=== PATIENT | male | born 1965 | race Hispanic/Latino ===

== ENCOUNTER 2017-02-21 10:31 | Inpatient (IN) | payer OTHER ==
[2017-02-21] MEDS ORDERED: NACL 0.9% 500 ML 500 ML IV ONE ×2 (10:52→11:58)
[2017-02-21] MEDS ORDERED: NACL 0.9% 1000 ML 1,000 ML IV ONE ×3 (10:53→13:57)
[2017-02-21 11:36] LABS: Urine Drugs of Abuse Note Disclamer
[2017-02-21 11:37] LABS: Alanine Aminotransferase 44 units/L (7-56); Albumin/Globulin Ratio 0.4 %; Alkaline Phosphatase 88 units/L (35-129); Anion Gap 22 mmol/L; BUN/Creatinine Ratio 13; Blood Urea Nitrogen 12 mg/dL (9-20); Calcium 7.9 mg/dL (8.4-10.2); Carbon Dioxide 21 mmol/L (22-30); Glucose 198 mg/dL (75-100); Potassium 3.8 mmol/L (3.6-5.0); Sodium 134 mmol/L (137-145); Total Protein 7.1 g/dL (6.3-8.2)
[2017-02-21] MEDS ORDERED: ROCEPHIN/NS 1 GM/50 ML 1 GM/50 ML BAG IV ONE (11:38)
[2017-02-21] MEDS ORDERED: LEVAQUIN 750MG/150ML 750 MG/150 ML BAG IV ONE (11:38)
[2017-02-21 11:45] LABS: Hematocrit 34.3 % (35.5-45.6); Hemoglobin 11.5 gm/dl (11.8-15.2); Mean Corpuscular HGB Conc 34 % (32-34); Mean Corpuscular Hemoglobin 28 pg (28-32); Mean Corpuscular Volume 83 fl (84-94); Platelet Count 346 K/mm3 (140-440); Red Blood Count 4.14 M/mm3 (3.65-5.03); White Blood Count 27.6 K/mm3 (4.5-11.0)
[2017-02-21] MEDS ORDERED: TYLENOL ONE (11:48)
[2017-02-21 11:51] LABS: Bilirubin,Urine NEG (Negative); Blood,Urine NEG (Negative); Ketones,Urine NEG (Negative); Leukocyte Esterase,Urine NEG (Negative); Mucus,Urine 1+ /HPF; Nitrite,Urine NEG (Negative)
[2017-02-21 11:52] LABS: INR 1.31 (0.87-1.13)
[2017-02-21] MEDS ORDERED: TYLENOL PO ONE (11:58)
[2017-02-21] MEDS ORDERED: VANCOMYCIN 2,000 MG in NACL 0.9% 500 ML 500 ML IV ONE (12:00)
[2017-02-21] MEDS ORDERED: VANCOMYCIN PHARMACY TO DOSE IV SCH (12:00)
[2017-02-21 12:43] LABS: Basophils % (Manual) 0 % (0.0-1.8); Blastocytes % (Manual) 0 %; Eosinophils % (Manual) 0 % (0.0-4.3); RBC Morphology Normal
[2017-02-21 12:44] LABS: Diff Status Complete
--- NOTE | 2017-02-21 13:06 | XRay Report ---
Single view chest: History: Possible sepsis. Findings: Large left pleural effusion the suspected consolidation/atelectasis adjacent lung. Left heart border obscured by effusion. Right heart border appears normal. No consolidation at right lung. Impression: Findings as detailed above. For optimal evaluation CT scan may be utilized
--- NOTE | 2017-02-21 13:11 | Emergency Department Report ---
ED General Adult HPI - General Chief complaint: Syncope Stated complaint: GUERO Time Seen by Provider: 02/21/17 11:23 Source: patient Mode of arrival: Ambulatory Limitations: No Limitations - History of Present Illness Initial comments: This is a patient who hasapparently significantly ill for 2 weeks. Despite that he did not see Medical care. He states he has a history of achalasia and has not properly followed up on that as well. He has been coughing with fever and chills for 2 weeks. His sputum is productive of green material. He states he is short of breath. Last night he passed out twice once striking his head. He states he perhaps was unconscious for 5 minutes. The patient presented to the emergency department with a blood pressure of 65 systolic. He was expeditiously placed in a room and given a bolus of IV fluid which was effective in restoring his normal blood pressure. Apparently the patient did go to a family physician who prescribed an antifungal medication. Patient makes no mention of HIV or yeast infection however. He states he thought this was an antibiotic. -: week(s) Location: chest Radiation: non-radiation (on Cough Only) Severity scale (0 -10): 6 Quality: aching Consistency: intermittent Improves with: none Worsens with: none Associated Symptoms: cough, fever/chills Treatments Prior to Arrival: none - Related Data Home Medications Medication Instructions Recorded Confirmed Last Taken No Known Home Medications [No 02/21/17 02/21/17 Unknown Reported Home Medications] Allergies Allergy/AdvReac Type Severity Reaction Status Date / Time No Known Allergies Allergy Verified 02/21/17 10:38 ED Review of Systems ROS: Stated complaint: GUERO Other details as noted in HPI Constitutional: denies: chills, fever Eyes: denies: eye pain, eye discharge, vision change ENT: denies: ear pain, throat pain Respiratory: see HPI, cough, shortness of breath. denies: wheezing Cardiovascular: denies: chest pain, palpitations Endocrine: no symptoms reported Gastrointestinal: as per HPI, vomiting (states from its after eating. States cannot tolerate solid food but can swallow liquids). denies: abdominal pain, nausea, diarrhea Genitourinary: denies: urgency, dysuria Musculoskeletal: denies: back pain, joint swelling, arthralgia Skin: denies: rash, lesions Neurological: denies: headache, weakness, paresthesias Psychiatric: denies: anxiety, depression Hematological/Lymphatic: denies: easy bleeding, easy bruising ED Past Medical Hx - Past Medical History Previous Medical History?: No Additional medical history: Accolasia - Surgical History Past Surgical History?: Yes Additional Surgical History: L elbow surgery - Social History Smoking Status: Former Smoker Substance Use Type: None - Medications Home Medications: Home Medications Medication Instructions Recorded Confirmed Last Taken Type No Known Home Medications [No 02/21/17 02/21/17 Unknown History Reported Home Medications] ED Physical Exam - General Limitations: No Limitations General appearance: alert, in no apparent distress, other (ill appearing) - Head Head exam: Present: atraumatic, normocephalic - Eye Eye exam: Present: normal appearance. Absent: scleral icterus - ENT ENT exam: Present: mucous membranes dry, other (I did not note anything consistent with thrush on oropharynx exam) - Neck Neck exam: Present: normal inspection - Respiratory Respiratory exam: Present: rhonchi (on left), other (obviously tachypneic). Absent: normal lung sounds bilaterally, respiratory distress - Cardiovascular Cardiovascular Exam: Present: regular rate, normal rhythm. Absent: systolic murmur, diastolic murmur, rubs, gallop - GI/Abdominal GI/Abdominal exam: Present: soft, normal bowel sounds. Absent: distended, tenderness, guarding, rebound, rigid - Rectal Rectal exam: Present: deferred - Extremities Exam Extremities exam: Present: normal inspection - Back Exam Back exam: Present: normal inspection - Neurological Exam Neurological exam: Present: alert, oriented X3, CN II-XII intact. Absent: motor sensory deficit - Psychiatric Psychiatric exam: Present: normal affect, normal mood - Skin Skin exam: Present: warm, dry, intact, normal color. Absent: rash ED Course Vital Signs 02/21/17 02/21/17 02/21/17 10:35 10:39 10:51 Temperature 98.1 F Pulse Rate 96 H 117 H Respiratory 18 26 H 23 Rate Blood Pressure 65/49 65/49 Blood Pressure [Right] O2 Sat by Pulse 94 Oximetry 02/21/17 02/21/17 02/21/17 10:59 11:00 11:01 Temperature Pulse Rate 113 H 116 H Respiratory 26 H 47 H 14 Rate Blood Pressure 110/73 Blood Pressure 110/69 [Right] O2 Sat by Pulse Oximetry 02/21/17 02/21/17 02/21/17 11:15 11:30 11:45 Temperature Pulse Rate 113 H 113 H 111 H Respiratory 33 H 24 30 H Rate Blood Pressure 104/67 101/56 Blood Pressure [Right] O2 Sat by Pulse 95 95 95 Oximetry 02/21/17 02/21/17 02/21/17 11:55 12:00 12:15 Temperature 103 F H Pulse Rate 107 H 107 H Respiratory 23 30 H Rate Blood Pressure 110/63 95/59 Blood Pressure [Right] O2 Sat by Pulse 95 94 Oximetry - Reevaluation(s) Reevaluation #1: The patient responded well to IV fluids. He clearly has a severe pneumonia with all lobes on the left affected. It is consolidating. He was treated with triple antibiotic. He will be admitted by Dr. Alaniz to the telemetry unit hospitalist service 02/21/17 13:12 ED Medical Decision Making - Lab Data Result diagrams: 02/21/17 11:01 02/21/17 11:01 Laboratory Results - last 24 hr 02/21/17 02/21/17 02/21/17 11:01 11:01 11:01 WBC 27.6 H RBC 4.14 Hgb 11.5 L Hct 34.3 L MCV 83 L MCH 28 MCHC 34 RDW 15.0 Plt Count 346 Add Manual Diff Complete Total Counted 200 Seg Neuts % (Manual) 94.5 H Band Neutrophils % 2.5 Lymphocytes % (Manual) 2.0 L Reactive Lymphs % (Man) 0 Monocytes % (Manual) 1.0 Eosinophils % (Manual) 0 Basophils % (Manual) 0 Metamyelocytes % 0 Myelocytes % 0 Promyelocytes % 0 Blast Cells % 0 Nucleated RBC % Not Reportable Seg Neutrophils # Man 26.1 H Band Neutrophils # 0.7 Lymphocytes # (Manual) 0.6 L Abs React Lymphs (Man) 0.0 Monocytes # (Manual) 0.3 Eosinophils # (Manual) 0.0 Basophils # (Manual) 0.0 Metamyelocytes # 0.0 Myelocytes # 0.0 Promyelocytes # 0.0 Blast Cells # 0.0 WBC Morphology Not Reportable Hypersegmented Neuts Not Reportable Hyposegmented Neuts Not Reportable Hypogranular Neuts Not Reportable Smudge Cells Not Reportable Toxic Granulation Not Reportable Toxic Vacuolation Not Reportable Dohle Bodies Not Reportable Pelger-Huet Anomaly Not Reportable Skip Rods Not Reportable Platelet Estimate Appears normal Clumped Platelets Not Reportable Plt Clumps, EDTA Not Reportable Large Platelets Not Reportable Giant Platelets Not Reportable Platelet Satelliting Not Reportable Plt Morphology Comment Not Reportable RBC Morphology Normal Dimorphic RBCs Not Reportable Polychromasia Not Reportable Hypochromasia Not Reportable Poikilocytosis Not Reportable Anisocytosis Not Reportable Microcytosis Not Reportable Macrocytosis Not Reportable Spherocytes Not Reportable Pappenheimer Bodies Not Reportable Sickle Cells Not Reportable Target Cells Not Reportable Tear Drop Cells Not Reportable Ovalocytes Not Reportable Helmet Cells Not Reportable Raymundo-Toad Hop Bodies Not Reportable Effie Rings Not Reportable Ocilla Cells Not Reportable Bite Cells Not Reportable Crenated Cell Not Reportable Elliptocytes Not Reportable Acanthocytes (Spur) Not Reportable Rouleaux Not Reportable Hemoglobin C Crystals Not Reportable Schistocytes Not Reportable Malaria parasites Not Reportable Armando Bodies Not Reportable Hem Pathologist Commnt No PT 16.9 H INR 1.31 H VBG pH Sodium 134 L Potassium 3.8 Chloride 95.0 L Carbon Dioxide 21 L Anion Gap 22 BUN 12 Creatinine 0.9 Estimated GFR > 60 BUN/Creatinine Ratio 13 Glucose 198 H Lactic Acid Calcium 7.9 L Total Bilirubin 1.30 H AST 26 ALT 44 Alkaline Phosphatase 88 Total Protein 7.1 Albumin 2.0 L Albumin/Globulin Ratio 0.4 Urine Color Urine Turbidity Urine pH Ur Specific Glover Urine Protein Urine Glucose (UA) Urine Ketones Urine Blood Urine Nitrite Urine Bilirubin Urine Urobilinogen Ur Leukocyte Esterase Urine WBC (Auto) Urine RBC (Auto) U Epithel Cells (Auto) Urine Mucus Urine Opiates Screen Urine Methadone Screen Ur Barbiturates Screen Ur Phencyclidine Scrn Ur Amphetamines Screen U Benzodiazepines Scrn Urine Cocaine Screen U Marijuana (THC) Screen Blood Type Antibody Screen ROMINA Antibody Screen 02/21/17 02/21/17 02/21/17 11:01 11:01 11:29 WBC RBC Hgb Hct MCV MCH MCHC RDW Plt Count Add Manual Diff Total Counted Seg Neuts % (Manual) Band Neutrophils % Lymphocytes % (Manual) Reactive Lymphs % (Man) Monocytes % (Manual) Eosinophils % (Manual) Basophils % (Manual) Metamyelocytes % Myelocytes % Promyelocytes % Blast Cells % Nucleated RBC % Seg Neutrophils # Man Band Neutrophils # Lymphocytes # (Manual) Abs React Lymphs (Man) Monocytes # (Manual) Eosinophils # (Manual) Basophils # (Manual) Metamyelocytes # Myelocytes # Promyelocytes # Blast Cells # WBC Morphology Hypersegmented Neuts Hyposegmented Neuts Hypogranular Neuts Smudge Cells Toxic Granulation Toxic Vacuolation Dohle Bodies Pelger-Huet Anomaly Skip Rods Platelet Estimate Clumped Platelets Plt Clumps, EDTA Large Platelets Giant Platelets Platelet Satelliting Plt Morphology Comment RBC Morphology Dimorphic RBCs Polychromasia Hypochromasia Poikilocytosis Anisocytosis Microcytosis Macrocytosis Spherocytes Pappenheimer Bodies Sickle Cells Target Cells Tear Drop Cells Ovalocytes Helmet Cells Raymundo-Toad Hop Bodies Effie Rings Jennifer Cells Bite Cells Crenated Cell Elliptocytes Acanthocytes (Spur) Rouleaux Hemoglobin C Crystals Schistocytes Malaria parasites Armando Bodies Hem Pathologist Commnt PT INR VBG pH 7.399 Sodium Potassium Chloride Carbon Dioxide Anion Gap BUN Creatinine Estimated GFR BUN/Creatinine Ratio Glucose Lactic Acid 3.20 H* Calcium Total Bilirubin AST ALT Alkaline Phosphatase Total Protein Albumin Albumin/Globulin Ratio Urine Color Karla Urine Turbidity Clear Urine pH 5.0 Ur Specific Glover 1.023 Urine Protein 30 mg/dl Urine Glucose (UA) Neg Urine Ketones Neg Urine Blood Neg Urine Nitrite Neg Urine Bilirubin Neg Urine Urobilinogen 4.0 Ur Leukocyte Esterase Neg Urine WBC (Auto) 4.0 Urine RBC (Auto) 4.0 U Epithel Cells (Auto) < 1.0 Urine Mucus 1+ Urine Opiates Screen Urine Methadone Screen Ur Barbiturates Screen Ur Phencyclidine Scrn Ur Amphetamines Screen U Benzodiazepines Scrn Urine Cocaine Screen U Marijuana (THC) Screen Blood Type Antibody Screen ROMINA Antibody Screen 02/21/17 02/21/17 11:29 11:45 WBC RBC Hgb Hct MCV MCH MCHC RDW Plt Count Add Manual Diff Total Counted Seg Neuts % (Manual) Band Neutrophils % Lymphocytes % (Manual) Reactive Lymphs % (Man) Monocytes % (Manual) Eosinophils % (Manual) Basophils % (Manual) Metamyelocytes % Myelocytes % Promyelocytes % Blast Cells % Nucleated RBC % Seg Neutrophils # Man Band Neutrophils # Lymphocytes # (Manual) Abs React Lymphs (Man) Monocytes # (Manual) Eosinophils # (Manual) Basophils # (Manual) Metamyelocytes # Myelocytes # Promyelocytes # Blast Cells # WBC Morphology Hypersegmented Neuts Hyposegmented Neuts Hypogranular Neuts Smudge Cells Toxic Granulation Toxic Vacuolation Dohle Bodies Pelger-Huet Anomaly Skip Rods Platelet Estimate Clumped Platelets Plt Clumps, EDTA Large Platelets Giant Platelets Platelet Satelliting Plt Morphology Comment RBC Morphology Dimorphic RBCs Polychromasia Hypochromasia Poikilocytosis Anisocytosis Microcytosis Macrocytosis Spherocytes Pappenheimer Bodies Sickle Cells Target Cells Tear Drop Cells Ovalocytes Helmet Cells Raymundo-Toad Hop Bodies Effie Rings Ocilla Cells Bite Cells Crenated Cell Elliptocytes Acanthocytes (Spur) Rouleaux Hemoglobin C Crystals Schistocytes Malaria parasites Armando Bodies Hem Pathologist Commnt PT INR VBG pH Sodium Potassium Chloride Carbon Dioxide Anion Gap BUN Creatinine Estimated GFR BUN/Creatinine Ratio Glucose Lactic Acid Calcium Total Bilirubin AST ALT Alkaline Phosphatase Total Protein Albumin Albumin/Globulin Ratio Urine Color Urine Turbidity Urine pH Ur Specific Glover Urine Protein Urine Glucose (UA) Urine Ketones Urine Blood Urine Nitrite Urine Bilirubin Urine Urobilinogen Ur Leukocyte Esterase Urine WBC (Auto) Urine RBC (Auto) U Epithel Cells (Auto) Urine Mucus Urine Opiates Screen Presumptive negative Urine Methadone Screen Presumptive negative Ur Barbiturates Screen Presumptive negative Ur Phencyclidine Scrn Presumptive negative Ur Amphetamines Screen Presumptive negative U Benzodiazepines Scrn Presumptive negative Urine Cocaine Screen Presumptive positive U Marijuana (THC) Screen Presumptive positive Blood Type A POSITIVE Antibody Screen TNR ROMINA Antibody Screen Negative Critical Care Time: Yes Critical care time in (mins) excluding proc time.: 60 Critical care attestation.: If time is entered above; I have spent that time in minutes in the direct care of this critically ill patient, excluding procedure time. ED Disposition Clinical Impression: Severe pneumonia, Achalasia Sepsis Qualifiers: Sepsis type: sepsis due to unspecified organism Qualified Code(s): A41.9 - Sepsis, unspecified organism Hypotension Qualifiers: Hypotension type: unspecified hypotension type Qualified Code(s): I95.9 - Hypotension, unspecified Disposition: OP ADMIT IP TO THIS HOSP Is pt being admited?: Yes Does the pt Need Aspirin: Yes Condition: Stable Instructions: Bacterial Pneumonia (ED) Referrals: PRIMARY CARE, [Primary Care Provider] - 3-5 Days Time of Disposition: 13:14
[2017-02-21] MEDS ORDERED: BABY ASPIRIN PO ONE (13:17)
[2017-02-21] MEDS: VANCOMYCIN 2,000 MG in NACL 0.9% 500 ML 500 ML IV SCH (13:42)
--- NOTE | 2017-02-21 14:14 | Cat Scan Report ---
CT HEAD WITHOUT CONTRAST: HISTORY: Syncope, head injury. Serial contiguous axial images were obtained through the cranium. Intravenous contrast material was not administered. The ventricles are normal in size and appearance. There is no mass effect or midline shift. No areas of abnormally increased or decreased attenuation are seen. No mass lesion is seen. The mastoid air cells and visualized portions of the sinuses are normal. IMPRESSION: Cranial CT scan within normal limits.
--- NOTE | 2017-02-21 20:39 | History and Physical Report ---
History of Present Illness Date of examination: 02/21/17 Date of admission: 02/21/17 13:05 Chief complaint: Fever chills for 2 weeks History of present illness: ALTURAS 51 y/o male with Achalasia has been coughing with fever and chills for 2 weeks. His sputum is productive of green material. He states he is short of breath. Last night he passed out twice once striking his head. He states he perhaps was unconscious for 5 minutes. The patient presented to the emergency department with a blood pressure of 65 systolic. He was given a bolus of IV fluids which was effective in restoring his normal blood pressure. Fever Chills and cough productive of Greenish sputum in Summary.Two episodes of passing out - Past Medical History Previous Medical History?: No Additional medical history: Achalasia - Surgical History Past Surgical History?: Yes Additional Surgical History: L elbow surgery - Social History Smoking Status: Former Smoker Substance Use Type: None - Medications Home Medications: Home Medications Medication Instructions Recorded Confirmed Last Taken Type No Known Home Medications [No 02/21/17 02/21/17 Unknown History Reported Home Medications] Review of Systems Stated complaint: GUERO Other details as noted in HPI Constitutional: denies: chills, fever Eyes: denies: eye pain, eye discharge, vision change ENT: denies: ear pain, throat pain Respiratory: see HPI, cough, shortness of breath. denies: wheezing Cardiovascular: denies: chest pain, palpitations Endocrine: no symptoms reported Gastrointestinal: as per HPI, vomiting (states from its after eating. States cannot tolerate solid food but can swallow liquids). denies: abdominal pain, nausea, diarrhea Genitourinary: denies: urgency, dysuria Musculoskeletal: denies: back pain, joint swelling, arthralgia Skin: denies: rash, lesions Neurological: denies: headache, weakness, paresthesias Psychiatric: denies: anxiety, depression Hematological/Lymphatic: denies: easy bleeding, easy bruising Past History Past Medical History: other (Achalasia) Past Surgical History: Other (L elbow surgery) Social history: lives with family, smoking (in the past), full code Family history: hypertension Medications and Allergies Allergies Allergy/AdvReac Type Severity Reaction Status Date / Time No Known Allergies Allergy Verified 02/21/17 10:38 Home Medications Medication Instructions Recorded Confirmed Last Taken Type No Known Home Medications [No 02/21/17 02/21/17 Unknown History Reported Home Medications] Active Meds: Active Medications Vancomycin HCl 2,000 mg/ (Sodium Chloride) 520 mls @ 250 mls/hr IV Q12H [facility] Last Admin: 02/21/17 13:42 Dose: 250 mls/hr Influenza Virus Vaccine Quadrival (Fluarix Quad [id number](36 Mos+)) 0.5 ml IM .ONCE ONE Stop: 02/22/17 12:01 Vancomycin HCl (Vancomycin Pharmacy To Dose) 1 each IV PKCONSULT [facility] PRN Reason: Protocol Review of Systems All systems: negative Constitutional: chills, sweats, night sweats, anorexia, fatigue, weakness, malaise, lethargy, poor appetite, no weight loss, no weight gain Ears, nose, mouth and throat: sore throat, no swelling in mouth, no swelling in throat Cardiovascular: syncope, lightheadedness, no chest pain, no orthopnea, no palpitations, no rapid/irregular heart beat, no edema Respiratory: cough with sputum, excessive sputum, dyspnea on exertion, congestion, wheezing, pleurisy, pain on inspiration Gastrointestinal: vomiting, no nausea, no diarrhea, no constipation Genitourinary Male: no dysuria, no hematuria, no flank pain, no discharge Rectal: no pain Musculoskeletal: no neck stiffness, no neck pain, no shooting arm pain, no arm numbness/tingling, no low back pain Integumentary: no rash, no pruritis, no redness Neurological: syncope, no head injury, no transient paralysis, no seizures Psychiatric: no anxiety, no memory loss Endocrine: no cold intolerance, no heat intolerance, no polyphagia, no excessive thirst Hematologic/Lymphatic: no easy bruising, no easy bleeding Allergic/Immunologic: no urticaria, no allergic rhinitis, no wheezing Exam - Constitutional Vitals: Temp Pulse Resp BP Pulse Ox 99.5 F 94 H 29 H 96/69 98 02/21/17 17:07 02/21/17 17:00 02/21/17 17:00 02/21/17 17:00 02/21/17 17:00 General appearance: Present: mild distress, well-nourished - EENT Eyes: Present: PERRL ENT: hearing intact, clear oral mucosa - Neck Neck: Present: supple, normal ROM - Respiratory Respiratory effort: normal Respiratory: right: CTA, left: diminished, bilateral: rhonchi - Cardiovascular Heart rate: 100 Heart Sounds: Present: S1 & S2. Absent: rub, click - Extremities Extremities: no ischemia, pulses intact, pulses symmetrical, No edema Peripheral Pulses: within normal limits - Abdominal General gastrointestinal: Present: soft, non-tender, non-distended, normal bowel sounds Male genitourinary: Present: normal - Integumentary Integumentary: Present: clear, warm, dry - Musculoskeletal Musculoskeletal: gait normal, strength equal bilaterally - Psychiatric Psychiatric: appropriate mood/affect, intact judgment & insight - Neurologic Neurologic: CNII-XII intact, moves all extremities Results - Labs CBC & Chem 7: 02/22/17 05:23 02/21/17 11:01 Labs: Laboratory Last Values WBC 27.6 K/mm3 (4.5-11.0) H 02/21/17 11:01 RBC 4.14 M/mm3 (3.65-5.03) 02/21/17 11:01 Hgb 11.5 gm/dl (11.8-15.2) L 02/21/17 11:01 Hct 34.3 % (35.5-45.6) L 02/21/17 11:01 MCV 83 fl (84-94) L 02/21/17 11:01 MCH 28 pg (28-32) 02/21/17 11:01 MCHC 34 % (32-34) 02/21/17 11:01 RDW 15.0 % (13.2-15.2) 02/21/17 11:01 Plt Count 346 K/mm3 (140-440) 02/21/17 11:01 Add Manual Diff Complete 02/21/17 11:01 Total Counted 200 02/21/17 11:01 Seg Neuts % (Manual) 94.5 % (40.0-70.0) H 02/21/17 11:01 Band Neutrophils % 2.5 % 02/21/17 11:01 Lymphocytes % (Manual) 2.0 % (13.4-35.0) L 02/21/17 11:01 Reactive Lymphs % (Man) 0 % 02/21/17 11:01 Monocytes % (Manual) 1.0 % (0.0-7.3) 02/21/17 11:01 Eosinophils % (Manual) 0 % (0.0-4.3) 02/21/17 11:01 Basophils % (Manual) 0 % (0.0-1.8) 02/21/17 11:01 Metamyelocytes % 0 % 02/21/17 11:01 Myelocytes % 0 % 02/21/17 11:01 Promyelocytes % 0 % 02/21/17 11:01 Blast Cells % 0 % 02/21/17 11:01 Nucleated RBC % Not Reportable 02/21/17 11:01 Seg Neutrophils # Man 26.1 K/mm3 (1.8-7.7) H 02/21/17 11:01 Band Neutrophils # 0.7 K/mm3 02/21/17 11:01 Lymphocytes # (Manual) 0.6 K/mm3 (1.2-5.4) L 02/21/17 11:01 Abs React Lymphs (Man) 0.0 K/mm3 02/21/17 11:01 Monocytes # (Manual) 0.3 K/mm3 (0.0-0.8) 02/21/17 11:01 Eosinophils # (Manual) 0.0 K/mm3 (0.0-0.4) 02/21/17 11:01 Basophils # (Manual) 0.0 K/mm3 (0.0-0.1) 02/21/17 11:01 Metamyelocytes # 0.0 K/mm3 02/21/17 11:01 Myelocytes # 0.0 K/mm3 02/21/17 11:01 Promyelocytes # 0.0 K/mm3 02/21/17 11:01 Blast Cells # 0.0 K/mm3 02/21/17 11:01 WBC Morphology Not Reportable 02/21/17 11:01 Hypersegmented Neuts Not Reportable 02/21/17 11:01 Hyposegmented Neuts Not Reportable 02/21/17 11:01 Hypogranular Neuts Not Reportable 02/21/17 11:01 Smudge Cells Not Reportable 02/21/17 11:01 Toxic Granulation Not Reportable 02/21/17 11:01 Toxic Vacuolation Not Reportable 02/21/17 11:01 Dohle Bodies Not Reportable 02/21/17 11:01 Pelger-Huet Anomaly Not Reportable 02/21/17 11:01 Skip Rods Not Reportable 02/21/17 11:01 Platelet Estimate Appears normal 02/21/17 11:01 Clumped Platelets Not Reportable 02/21/17 11:01 Plt Clumps, EDTA Not Reportable 02/21/17 11:01 Large Platelets Not Reportable 02/21/17 11:01 Giant Platelets Not Reportable 02/21/17 11:01 Platelet Satelliting Not Reportable 02/21/17 11:01 Plt Morphology Comment Not Reportable 02/21/17 11:01 RBC Morphology Normal 02/21/17 11:01 Dimorphic RBCs Not Reportable 02/21/17 11:01 Polychromasia Not Reportable 02/21/17 11:01 Hypochromasia Not Reportable 02/21/17 11:01 Poikilocytosis Not Reportable 02/21/17 11:01 Anisocytosis Not Reportable 02/21/17 11:01 Microcytosis Not Reportable 02/21/17 11:01 Macrocytosis Not Reportable 02/21/17 11:01 Spherocytes Not Reportable 02/21/17 11:01 Pappenheimer Bodies Not Reportable 02/21/17 11:01 Sickle Cells Not Reportable 02/21/17 11:01 Target Cells Not Reportable 02/21/17 11:01 Tear Drop Cells Not Reportable 02/21/17 11:01 Ovalocytes Not Reportable 02/21/17 11:01 Helmet Cells Not Reportable 02/21/17 11:01 Raymundo-Blakeslee Bodies Not Reportable 02/21/17 11:01 [place] Rings Not Reportable 02/21/17 11:01 [place] Cells Not Reportable 02/21/17 11:01 Bite Cells Not Reportable 02/21/17 11:01 Crenated Cell Not Reportable 02/21/17 11:01 Elliptocytes Not Reportable 02/21/17 11:01 Acanthocytes (Spur) Not Reportable 02/21/17 11:01 Rouleaux Not Reportable 02/21/17 11:01 Hemoglobin C Crystals Not Reportable 02/21/17 11:01 Schistocytes Not Reportable 02/21/17 11:01 Malaria parasites Not Reportable 02/21/17 11:01 Armando Bodies Not Reportable 02/21/17 11:01 Hem Pathologist Commnt No 02/21/17 11:01 PT 16.9 Sec. (12.2-14.9) H 02/21/17 11:01 INR 1.31 (0.87-1.13) H 02/21/17 11:01 VBG pH 7.399 (7.320-7.420) 02/21/17 11:01 Sodium 134 mmol/L (137-145) L 02/21/17 11:01 Potassium 3.8 mmol/L (3.6-5.0) 02/21/17 11:01 Chloride 95.0 mmol/L (98-107) L 02/21/17 11:01 Carbon Dioxide 21 mmol/L (22-30) L 02/21/17 11:01 Anion Gap 22 mmol/L 02/21/17 11:01 BUN 12 mg/dL (9-20) 02/21/17 11:01 Creatinine 0.9 mg/dL (0.8-1.5) 02/21/17 11:01 Estimated GFR > 60 ml/min 02/21/17 11:01 BUN/Creatinine Ratio 13 % 02/21/17 11:01 Glucose 198 mg/dL (75-100) H 02/21/17 11:01 Lactic Acid 2.30 mmol/L (0.7-2.0) H* 02/21/17 13:49 Calcium 7.9 mg/dL (8.4-10.2) L 02/21/17 11:01 Total Bilirubin 1.30 mg/dL (0.1-1.2) H 02/21/17 11:01 AST 26 units/L (5-40) 02/21/17 11:01 ALT 44 units/L (7-56) 02/21/17 11:01 Alkaline Phosphatase 88 units/L (35-129) 02/21/17 11:01 Total Protein 7.1 g/dL (6.3-8.2) 02/21/17 11:01 Albumin 2.0 g/dL (3.9-5) L 02/21/17 11:01 Albumin/Globulin Ratio 0.4 % 02/21/17 11:01 Urine Color Karla (Yellow) 02/21/17 11:29 Urine Turbidity Clear (Clear) 02/21/17 11:29 Urine pH 5.0 (5.0-7.0) 02/21/17 11:29 Ur Specific [place] 1.023 (1.003-1.030) 02/21/17 11:29 Urine Protein 30 mg/dl mg/dL (Negative) 02/21/17 11:29 Urine Glucose (UA) Neg mg/dL (Negative) 02/21/17 11:29 Urine Ketones Neg mg/dL (Negative) 02/21/17 11:29 Urine Blood Neg (Negative) 02/21/17 11:29 Urine Nitrite Neg (Negative) 02/21/17 11:29 Urine Bilirubin Neg (Negative) 02/21/17 11:29 Urine Urobilinogen 4.0 mg/dL (<2.0) 02/21/17 11:29 Ur Leukocyte Esterase Neg (Negative) 02/21/17 11:29 Urine WBC (Auto) 4.0 /HPF (0.0-6.0) 02/21/17 11:29 Urine RBC (Auto) 4.0 /HPF (0.0-6.0) 02/21/17 11:29 U Epithel Cells (Auto) < 1.0 /HPF (0-13.0) 02/21/17 11:29 Urine Mucus 1+ /HPF 02/21/17 11:29 Urine Opiates Screen Presumptive negative 02/21/17 11:29 Urine Methadone Screen Presumptive negative 02/21/17 11:29 Ur Barbiturates Screen Presumptive negative 02/21/17 11:29 Ur Phencyclidine Scrn Presumptive negative 02/21/17 11:29 Ur Amphetamines Screen Presumptive negative 02/21/17 11:29 U Benzodiazepines Scrn Presumptive negative 02/21/17 11:29 Urine Cocaine Screen Presumptive positive 02/21/17 11:29 U Marijuana (THC) Screen Presumptive positive 02/21/17 11:29 Drugs of Abuse Note Disclamer 02/21/17 11:29 Blood Type A POSITIVE 02/21/17 11:45 Antibody Screen TNR 02/21/17 11:45 ROMINA Antibody Screen Negative 02/21/17 11:45 - Imaging and Cardiology EKG: report reviewed Chest x-ray: report reviewed (Lt pleural effusion //parapneumonic??) CT scan - chest: report reviewed (LOCULATED EXTRA PULMONIC COLLECTION OF FLUID AIR SAT THE LEFT LUNG BASE [id number] CM -SUGGESTS eMPYEMAPOSSIBLE bp FISTULA) Assessment and Plan Advance Directives: Yes (fc) VTE prophylaxis?: Chemical Plan of care discussed with patient/family: Yes - Patient Problems (1) Sepsis Current Visit: Yes Status: Acute Qualifiers: Sepsis type: sepsis due to unspecified organism Qualified Code(s): A41.9 - Sepsis, unspecified organism Plan to address problem: IN FAVOR OF SEPSIS GIVEN HIS LOW BP ON ADMISSION TO ER AND HIGH LACTIC ACID.ALSO EMPYEMA CONTRIBUtING.On Zosyn and Vancomycin May need drainage of Empyema (2) Severe pneumonia Current Visit: Yes Status: Acute Plan to address problem: Left sided resultin in Pleural effusion and Empyema.Zosyn and Vancomycin (3) Syncope and collapse Current Visit: Yes Status: Acute Plan to address problem: Sec to Hypotension.No w/u for Syncope initiated (4) Achalasia Current Visit: Yes Status: Chronic Plan to address problem: Sx treatment GI consult as out patient (5) COPD (chronic obstructive pulmonary disease) Current Visit: Yes Status: Chronic Qualifiers: COPD type: C Chronic bronchitis type: C Emphysema type: unspecified Qualified Code(s): J43.9 - Emphysema, unspecified Plan to address problem: Duonebs initiated (6) Hypotension Current Visit: Yes Status: Acute Qualifiers: Hypotension type: unspecified hypotension type Trimester: T Qualified Code(s): I95.9 - Hypotension, unspecified Plan to address problem: Sec to sepsis.Corrected with IV fluids (7) DVT prophylaxis Current Visit: Yes Status: Acute Plan to address problem: on lovenox
[2017-02-21] MEDS ORDERED: DULCOLAX PR PRN (20:50)
[2017-02-21] MEDS ORDERED: DILAUDID IV PRN (20:50)
[2017-02-21] MEDS ORDERED: MILK OF MAGNESIA PO PRN (20:50)
[2017-02-21 23:24] LABS: Creatine Kinase MB 1.7 ng/mL (0.0-4.0)
[2017-02-21 23:26] LABS: Magnesium 1.5 mg/dL (1.7-2.3)
--- NOTE | 2017-02-21 23:28 | Cat Scan Report ---
FINAL REPORT PROCEDURE: CT CHEST W CON TECHNIQUE: Computerized axial tomography of the chest was performed during the IV injection of iodinated nonionic contrast. HISTORY: L pleural effusion COMPARISON: No prior studies are available for comparison. TECHNICAL QUALITY: Satisfactory. FINDINGS: There is a loculated extra pulmonic collection of fluid and air at the left lung base measuring 12 x 14 x 11 centimeters. This suggests an empyema. Possible bronchopulmonary fistula not excluded. There is atelectasis and infiltrate at the left lung base. There is advanced COPD with chronic appearing fibrotic and cystic changes bilaterally. Right lung is clear and expanded. There is no pneumothorax. Heart size is normal. There is no pericardial effusion. Thoracic aorta is normal in caliber. There is mediastinal and hilar lymphadenopathy. The esophagus is dilated and filled with fluid. Possible gastric pull through not excluded. Please correlate with clinical data. Images of the upper abdomen demonstrate no acute abnormality. Thoracic spine, sternum and ribs are intact. IMPRESSION: There is a loculated extra pulmonic collection of fluid and air at the left lung base measuring 12 x 14 x 11 centimeters. This suggests an empyema. Possible bronchopulmonary fistula not excluded. There is atelectasis and infiltrate at the left lung base. There is advanced COPD with chronic appearing fibrotic and cystic changes bilaterally. Right lung is clear and expanded. There is no pneumothorax. Heart size is normal. There is mediastinal and hilar lymphadenopathy. The esophagus is dilated and filled with fluid. Possible gastric pull through not excluded. Please correlate with clinical data. Thoracic spine, sternum and ribs are intact.
[2017-02-21] MEDS: PEPCID IV SCH (23:40)
[2017-02-22] MEDS: PERCOCET 5/325 PO PRN ×3 (00:02→21:29)
[2017-02-22] MEDS: ZOSYN/NS 4.5GM/100ML 4.5 GM/100 ML VIAL IV SCH ×4 (00:03→21:09)
[2017-02-22] MEDS: DUONEB *Not for PRN Use IH SCH ×5 (02:31→20:46)
[2017-02-22] MEDS: VANCOMYCIN 2,000 MG in NACL 0.9% 500 ML 500 ML IV SCH ×2 (02:53→12:51)
[2017-02-22 06:35] LABS: Hemoglobin 10.3 gm/dl (11.8-15.2); Mean Corpuscular HGB Conc 33 % (32-34); Mean Corpuscular Hemoglobin 28 pg (28-32); Mean Corpuscular Volume 83 fl (84-94); Platelet Count 303 K/mm3 (140-440); Red Blood Count 3.76 M/mm3 (3.65-5.03); Red Cell Distribution Width 15.2 % (13.2-15.2)
[2017-02-22 06:36] LABS: White Blood Count 20.2 K/mm3 (4.5-11.0)
[2017-02-22] MEDS: TYLENOL PO PRN (07:35)
[2017-02-22] MEDS ORDERED: PROVENTIL IH PRN ×2 (07:39→07:43)
[2017-02-22] MEDS ORDERED: VANCOMYCIN PHARMACY TO DOSE IV SCH (08:00)
[2017-02-22 08:18] LABS: Basophils % (Manual) 0 % (0.0-1.8); Blastocytes % (Manual) 0 %; Diff Status Complete; Eosinophils % (Manual) 0 % (0.0-4.3); RBC Morphology Normal
[2017-02-22 08:39] LABS: Alanine Aminotransferase 31 units/L (7-56); Albumin 1.9 g/dL (3.9-5); Albumin/Globulin Ratio 0.5 %; Alkaline Phosphatase 79 units/L (35-129); Anion Gap 18 mmol/L; BUN/Creatinine Ratio 11; Blood Urea Nitrogen 8 mg/dL (9-20); Calcium 7.6 mg/dL (8.4-10.2); Carbon Dioxide 21 mmol/L (22-30); Chloride 101.6 mmol/L (98-107); Glucose 128 mg/dL (75-100); Potassium 3.1 mmol/L (3.6-5.0); Sodium 137 mmol/L (137-145); Total Protein 6.1 g/dL (6.3-8.2)
[2017-02-22] MEDS ORDERED: MAGNESIUM SULFATE 3 GM in NACL 0.9% 100 ML IV ONE (10:30)
[2017-02-22] MEDS: PEPCID IV SCH ×2 (11:02→21:10)
[2017-02-22] MEDS: HABITROL TD SCH (11:02)
[2017-02-22] MEDS ORDERED: Fluarix Quad 2017-2018(36 MOS+) IM ONE (12:00)
[2017-02-22] MEDS: ZOFRAN IV PRN ×2 (13:05→18:23)
[2017-02-22] MEDS: CEPACOL X STRENGTH MM PRN ×2 (18:44→21:10)
--- NOTE | 2017-02-22 19:14 | Progress Note ---
Assessment and Plan Assessment and plan: Sepsis due to aspiration pmeumonia. Patient was hypotensive on presentation, BP now stable. Blood cultures drawn. Started on Zosyn and vancomycin Aspiration Pneumonia, most probably. He has achalasia so may have aspirated. Hypotension due to Sepsis. His BP is now stable. Left pleural effusion may be parapneumonic. Pulmonology consulted Syncope at home due to hypotension. He was hypotensive on initial presentation. BP now stable. No more syncope since admitted. Achalasia, chronic. He has been having difficulty with getting food down for months COPD DVT prophylaxis with Heparin Full code status History Interval history: Fever and chills Cough Shortness of breath Passed out at home Hospitalist Physical - Physical exam Narrative exam: Gen Appearance: Not in acute distress, HEENT: normocephalic, atraumatic Neck: supple, no JVD Lungs: Decreased breath sounds on left lower lung field, no wheezing Heart: S1 and S2 regular, no murmurs, rubs or gallop Abdomen: Soft , non tender, non distended, normal bowel sounds Extremity: No edema, No clubbing or cyanosis Neuro : Awake,alert, oriented x 3, moves all extremities - Constitutional Vitals: Temp Pulse Resp BP Pulse Ox 98.7 F 108 H 18 104/66 93 02/22/17 09:08 02/22/17 09:08 02/22/17 09:08 02/22/17 09:08 02/22/17 09:08 General appearance: Present: mild distress, well-nourished Results - Labs CBC & Chem 7: 02/22/17 05:23 02/22/17 05:23 Labs: Laboratory Last Values WBC 20.2 K/mm3 (4.5-11.0) H 02/22/17 05:23 RBC 3.76 M/mm3 (3.65-5.03) 02/22/17 05:23 Hgb 10.3 gm/dl (11.8-15.2) L 02/22/17 05:23 Hct 31.0 % (35.5-45.6) L 02/22/17 05:23 MCV 83 fl (84-94) L 02/22/17 05:23 MCH 28 pg (28-32) 02/22/17 05:23 MCHC 33 % (32-34) 02/22/17 05:23 RDW 15.2 % (13.2-15.2) 02/22/17 05:23 Plt Count 303 K/mm3 (140-440) 02/22/17 05:23 Add Manual Diff Complete 02/22/17 05:23 Total Counted 100 02/22/17 05:23 Seg Neuts % (Manual) 90.0 % (40.0-70.0) H 02/22/17 05:23 Band Neutrophils % 3.0 % 02/22/17 05:23 Lymphocytes % (Manual) 5.0 % (13.4-35.0) L 02/22/17 05:23 Reactive Lymphs % (Man) 0 % 02/22/17 05:23 Monocytes % (Manual) 2.0 % (0.0-7.3) 02/22/17 05:23 Eosinophils % (Manual) 0 % (0.0-4.3) 02/22/17 05:23 Basophils % (Manual) 0 % (0.0-1.8) 02/22/17 05:23 Metamyelocytes % 0 % 02/22/17 05:23 Myelocytes % 0 % 02/22/17 05:23 Promyelocytes % 0 % 02/22/17 05:23 Blast Cells % 0 % 02/22/17 05:23 Nucleated RBC % Not Reportable 02/22/17 05:23 Seg Neutrophils # Man 18.2 K/mm3 (1.8-7.7) H 02/22/17 05:23 Band Neutrophils # 0.6 K/mm3 02/22/17 05:23 Lymphocytes # (Manual) 1.0 K/mm3 (1.2-5.4) L 02/22/17 05:23 Abs React Lymphs (Man) 0.0 K/mm3 02/22/17 05:23 Monocytes # (Manual) 0.4 K/mm3 (0.0-0.8) 02/22/17 05:23 Eosinophils # (Manual) 0.0 K/mm3 (0.0-0.4) 02/22/17 05:23 Basophils # (Manual) 0.0 K/mm3 (0.0-0.1) 02/22/17 05:23 Metamyelocytes # 0.0 K/mm3 02/22/17 05:23 Myelocytes # 0.0 K/mm3 02/22/17 05:23 Promyelocytes # 0.0 K/mm3 02/22/17 05:23 Blast Cells # 0.0 K/mm3 02/22/17 05:23 WBC Morphology Not Reportable 02/22/17 05:23 Hypersegmented Neuts Not Reportable 02/22/17 05:23 Hyposegmented Neuts Not Reportable 02/22/17 05:23 Hypogranular Neuts Not Reportable 02/22/17 05:23 Smudge Cells Not Reportable 02/22/17 05:23 Toxic Granulation Not Reportable 02/22/17 05:23 Toxic Vacuolation Not Reportable 02/22/17 05:23 Dohle Bodies Not Reportable 02/22/17 05:23 Pelger-Huet Anomaly Not Reportable 02/22/17 05:23 Skip Rods Not Reportable 02/22/17 05:23 Platelet Estimate Not Reportable 02/22/17 05:23 Clumped Platelets Not Reportable 02/22/17 05:23 Plt Clumps, EDTA Not Reportable 02/22/17 05:23 Large Platelets Not Reportable 02/22/17 05:23 Giant Platelets Not Reportable 02/22/17 05:23 Platelet Satelliting Not Reportable 02/22/17 05:23 Plt Morphology Comment Not Reportable 02/22/17 05:23 RBC Morphology Normal 02/22/17 05:23 Dimorphic RBCs Not Reportable 02/22/17 05:23 Polychromasia Not Reportable 02/22/17 05:23 Hypochromasia Not Reportable 02/22/17 05:23 Poikilocytosis Not Reportable 02/22/17 05:23 Anisocytosis Not Reportable 02/22/17 05:23 Microcytosis Not Reportable 02/22/17 05:23 Macrocytosis Not Reportable 02/22/17 05:23 Spherocytes Not Reportable 02/22/17 05:23 Pappenheimer Bodies Not Reportable 02/22/17 05:23 Sickle Cells Not Reportable 02/22/17 05:23 Target Cells Not Reportable 02/22/17 05:23 Tear Drop Cells Not Reportable 02/22/17 05:23 Ovalocytes Not Reportable 02/22/17 05:23 Helmet Cells Not Reportable 02/22/17 05:23 Raymundo-Rembrandt Bodies Not Reportable 02/22/17 05:23 [place] Rings Not Reportable 02/22/17 05:23 [place] Cells Not Reportable 02/22/17 05:23 Bite Cells Not Reportable 02/22/17 05:23 Crenated Cell Not Reportable 02/22/17 05:23 Elliptocytes Not Reportable 02/22/17 05:23 Acanthocytes (Spur) Not Reportable 02/22/17 05:23 Rouleaux Not Reportable 02/22/17 05:23 Hemoglobin C Crystals Not Reportable 02/22/17 05:23 Schistocytes Not Reportable 02/22/17 05:23 Malaria parasites Not Reportable 02/22/17 05:23 Armando Bodies Not Reportable 02/22/17 05:23 Hem Pathologist Commnt No 02/22/17 05:23 PT 16.9 Sec. (12.2-14.9) H 02/21/17 11:01 INR 1.31 (0.87-1.13) H 02/21/17 11:01 VBG pH 7.399 (7.320-7.420) 02/21/17 11:01 Sodium 137 mmol/L (137-145) 02/22/17 05:23 Potassium 3.1 mmol/L (3.6-5.0) L 02/22/17 05:23 Chloride 101.6 mmol/L (98-107) 02/22/17 05:23 Carbon Dioxide 21 mmol/L (22-30) L 02/22/17 05:23 Anion Gap 18 mmol/L 02/22/17 05:23 BUN 8 mg/dL (9-20) L 02/22/17 05:23 Creatinine 0.7 mg/dL (0.8-1.5) L 02/22/17 05:23 Estimated GFR > 60 ml/min 02/22/17 05:23 BUN/Creatinine Ratio 11 % 02/22/17 05:23 Glucose 128 mg/dL (75-100) H 02/22/17 05:23 Lactic Acid 2.30 mmol/L (0.7-2.0) H* 02/21/17 13:49 Calcium 7.6 mg/dL (8.4-10.2) L 02/22/17 05:23 Magnesium 1.50 mg/dL (1.7-2.3) L 02/21/17 22:42 Total Bilirubin 0.90 mg/dL (0.1-1.2) 02/22/17 05:23 AST 24 units/L (5-40) 02/22/17 05:23 ALT 31 units/L (7-56) 02/22/17 05:23 Alkaline Phosphatase 79 units/L (35-129) 02/22/17 05:23 Total Creatine Kinase 69 units/L (55-170) 02/21/17 22:42 CK-MB (CK-2) 1.7 ng/mL (0.0-4.0) 02/21/17 22:42 CK-MB (CK-2) Rel Index 2.4 (0-4) 02/21/17 22:42 Troponin T < 0.010 ng/mL (0.00-0.029) 02/21/17 22:42 NT-Pro-B Natriuret Pep 2733 pg/mL (0-900) H 02/21/17 22:42 Total Protein 6.1 g/dL (6.3-8.2) L 02/22/17 05:23 Albumin 1.9 g/dL (3.9-5) L 02/22/17 05:23 Albumin/Globulin Ratio 0.5 % 02/22/17 05:23 Urine Color Karla (Yellow) 02/21/17 11:29 Urine Turbidity Clear (Clear) 02/21/17 11:29 Urine pH 5.0 (5.0-7.0) 02/21/17 11:29 Ur Specific [place] 1.023 (1.003-1.030) 02/21/17 11:29 Urine Protein 30 mg/dl mg/dL (Negative) 02/21/17 11:29 Urine Glucose (UA) Neg mg/dL (Negative) 02/21/17 11:29 Urine Ketones Neg mg/dL (Negative) 02/21/17 11:29 Urine Blood Neg (Negative) 02/21/17 11:29 Urine Nitrite Neg (Negative) 02/21/17 11:29 Urine Bilirubin Neg (Negative) 02/21/17 11:29 Urine Urobilinogen 4.0 mg/dL (<2.0) 02/21/17 11:29 Ur Leukocyte Esterase Neg (Negative) 02/21/17 11:29 Urine WBC (Auto) 4.0 /HPF (0.0-6.0) 02/21/17 11:29 Urine RBC (Auto) 4.0 /HPF (0.0-6.0) 02/21/17 11:29 U Epithel Cells (Auto) < 1.0 /HPF (0-13.0) 02/21/17 11:29 Urine Mucus 1+ /HPF 02/21/17 11:29 Urine Opiates Screen Presumptive negative 02/21/17 11:29 Urine Methadone Screen Presumptive negative 02/21/17 11:29 Ur Barbiturates Screen Presumptive negative 02/21/17 11:29 Ur Phencyclidine Scrn Presumptive negative 02/21/17 11:29 Ur Amphetamines Screen Presumptive negative 02/21/17 11:29 U Benzodiazepines Scrn Presumptive negative 02/21/17 11:29 Urine Cocaine Screen Presumptive positive 02/21/17 11:29 U Marijuana (THC) Screen Presumptive positive 02/21/17 11:29 Drugs of Abuse Note Disclamer 02/21/17 11:29 Blood Type A POSITIVE 02/21/17 11:45 Antibody Screen TNR 02/21/17 11:45 ROMINA Antibody Screen Negative 02/21/17 11:45
--- NOTE | 2017-02-22 23:01 | Event Note ---
Date: 02/22/[address] Alaniz thank you for asking us to participate in the care of this patient. Full consultation dictated. Pulmonary consultation dictation number [id number]. Impresion: 1. Left Lower lobe pneumonia. 2. Loculated left pleural effusion. Could be empyema. 3. Sepsis 4. Achalasia. 5. COPD 6. Hypotension. 7. Syncopal episode. PLAN: 1.Continue Zosyn and vancomycin. 2. Albuterol/atrovent aerosol treatments q 6 hours. 3. O2 supplementation 2 litres via nasal canula. 4. Considering left thoracentesis 5. Continue S/c heparin. 6. Continue Pepcid. x
[2017-02-23] MEDS: VANCOMYCIN 2,000 MG in NACL 0.9% 500 ML 500 ML IV SCH ×2 (00:20→15:27)
[2017-02-23] MEDS: DUONEB *Not for PRN Use IH SCH ×3 (02:18→14:57)
[2017-02-23] MEDS: PERCOCET 5/325 PO PRN (05:02)
[2017-02-23] MEDS: HEPARIN SUB-Q SCH ×3 (05:02→21:19)
[2017-02-23] MEDS: ZOSYN/NS 4.5GM/100ML 4.5 GM/100 ML VIAL IV SCH ×3 (05:10→21:19)
[2017-02-23 08:05] LABS: Hematocrit 30.5 % (35.5-45.6); Hemoglobin 10.1 gm/dl (11.8-15.2); Mean Corpuscular HGB Conc 33 % (32-34); Mean Corpuscular Hemoglobin 27 pg (28-32); Mean Corpuscular Volume 82 fl (84-94); Platelet Count 277 K/mm3 (140-440); Red Blood Count 3.71 M/mm3 (3.65-5.03); Red Cell Distribution Width 15.4 % (13.2-15.2); White Blood Count 14.3 K/mm3 (4.5-11.0)
[2017-02-23 08:13] LABS: Alanine Aminotransferase 27 units/L (7-56); Albumin 1.7 g/dL (3.9-5); Albumin/Globulin Ratio 0.4 %; Alkaline Phosphatase 65 units/L (35-129); Anion Gap 17 mmol/L; BUN/Creatinine Ratio 11; Blood Urea Nitrogen 11 mg/dL (9-20); Calcium 7.7 mg/dL (8.4-10.2); Carbon Dioxide 22 mmol/L (22-30); Glucose 135 mg/dL (75-100); Potassium 3.2 mmol/L (3.6-5.0); Sodium 137 mmol/L (137-145); Total Protein 5.9 g/dL (6.3-8.2)
[2017-02-23] MEDS ORDERED: K-DUR PO ONE (09:00)
[2017-02-23] MEDS: PEPCID IV SCH ×2 (10:33→21:18)
[2017-02-23] MEDS: HABITROL TD SCH (10:34)
--- NOTE | 2017-02-23 11:16 | Progress Note ---
Assessment and Plan - Patient Problems (1) Cocaine abuse Current Visit: Yes Status: Acute Plan to address problem: Spoke about cessation from all drugs alcohol. (2) Severe pneumonia Current Visit: Yes Status: Acute Plan to address problem: Patient aspiration pneumonia improving on Zosyn and vancomycin. May be able to change patient to by mouth medications in the a.m. Will need to take under consideration patient has achalasia and has had some difficulty swallowing pills. Now patient was able to eat and keep down. Prolonged course of IV antibiotics may be warranted. (3) Achalasia Current Visit: Yes Status: Chronic Plan to address problem: Achalasia we'll ask GI to evaluate patient and see if any other recommendations for achalasia can be made at this particular time. Most likely can be evaluated outpatient since been going on since the age of 14. (4) COPD (chronic obstructive pulmonary disease) Current Visit: Yes Status: Chronic Qualifiers: COPD type: C Chronic bronchitis type: C Emphysema type: unspecified Qualified Code(s): J43.9 - Emphysema, unspecified Plan to address problem: Continue current nebulizers and oxygen and supportive care. (5) Malnutrition compromising bodily function Current Visit: Yes Status: Acute Plan to address problem: Protein deficiency malnutrition secondary to achalasia patient had been unable to eat also had an episode of aspiration pneumonia. Albumin 1.7. We'll correct electrolytes and GI consult for any recommendations for achalasia. History Interval history: Patient has improved today. Fever curve is coming down. White count is coming down from 27-14. Patient clinically feels better. Still with cough congestion although improving. Etiology of pneumonia secondary to aspiration pneumonia. Patient has long history of achalasia since he was 14 years old. Importantly patient was able to eat today he states he been first time in the past 10 weeks. Hospitalist Physical - Constitutional Vitals: Temp Pulse Resp BP Pulse Ox 100.0 F H 94 H 18 122/69 87 02/23/17 04:49 02/23/17 04:52 02/23/17 04:49 02/23/17 04:52 02/23/17 08:52 General appearance: Present: mild distress, well-nourished - Respiratory Respiratory: right: rhonchi, bilateral: diminished - Cardiovascular Rhythm: regular Heart Sounds: Present: S1 & S2 - Extremities Extremities: no ischemia, pulses intact, pulses symmetrical, No edema, normal temperature, normal color, Full ROM Peripheral Pulses: within normal limits - Abdominal General gastrointestinal: soft, non-tender, non-distended, no hypoactive bowel sounds, no hepatomegaly, no splenomegaly - Integumentary Integumentary: Present: clear, warm, dry - Psychiatric Psychiatric: appropriate mood/affect, intact judgment & insight, cooperative - Neurologic Neurologic: CNII-XII intact, no focal deficits, moves all extremities Results - Labs CBC & Chem 7: 02/23/17 06:44 02/23/17 06:44 Labs: Laboratory Last Values WBC 14.3 K/mm3 (4.5-11.0) H 02/23/17 06:44 RBC 3.71 M/mm3 (3.65-5.03) 02/23/17 06:44 Hgb 10.1 gm/dl (11.8-15.2) L 02/23/17 06:44 Hct 30.5 % (35.5-45.6) L 02/23/17 06:44 MCV 82 fl (84-94) L 02/23/17 06:44 MCH 27 pg (28-32) L 02/23/17 06:44 MCHC 33 % (32-34) 02/23/17 06:44 RDW 15.4 % (13.2-15.2) H 02/23/17 06:44 Plt Count 277 K/mm3 (140-440) 02/23/17 06:44 Add Manual Diff Complete 02/22/17 05:23 Total Counted 100 02/22/17 05:23 Seg Neuts % (Manual) 90.0 % (40.0-70.0) H 02/22/17 05:23 Band Neutrophils % 3.0 % 02/22/17 05:23 Lymphocytes % (Manual) 5.0 % (13.4-35.0) L 02/22/17 05:23 Reactive Lymphs % (Man) 0 % 02/22/17 05:23 Monocytes % (Manual) 2.0 % (0.0-7.3) 02/22/17 05:23 Eosinophils % (Manual) 0 % (0.0-4.3) 02/22/17 05:23 Basophils % (Manual) 0 % (0.0-1.8) 02/22/17 05:23 Metamyelocytes % 0 % 02/22/17 05:23 Myelocytes % 0 % 02/22/17 05:23 Promyelocytes % 0 % 02/22/17 05:23 Blast Cells % 0 % 02/22/17 05:23 Nucleated RBC % Not Reportable 02/22/17 05:23 Seg Neutrophils # Man 18.2 K/mm3 (1.8-7.7) H 02/22/17 05:23 Band Neutrophils # 0.6 K/mm3 02/22/17 05:23 Lymphocytes # (Manual) 1.0 K/mm3 (1.2-5.4) L 02/22/17 05:23 Abs React Lymphs (Man) 0.0 K/mm3 02/22/17 05:23 Monocytes # (Manual) 0.4 K/mm3 (0.0-0.8) 02/22/17 05:23 Eosinophils # (Manual) 0.0 K/mm3 (0.0-0.4) 02/22/17 05:23 Basophils # (Manual) 0.0 K/mm3 (0.0-0.1) 02/22/17 05:23 Metamyelocytes # 0.0 K/mm3 02/22/17 05:23 Myelocytes # 0.0 K/mm3 02/22/17 05:23 Promyelocytes # 0.0 K/mm3 02/22/17 05:23 Blast Cells # 0.0 K/mm3 02/22/17 05:23 WBC Morphology Not Reportable 02/22/17 05:23 Hypersegmented Neuts Not Reportable 02/22/17 05:23 Hyposegmented Neuts Not Reportable 02/22/17 05:23 Hypogranular Neuts Not Reportable 02/22/17 05:23 Smudge Cells Not Reportable 02/22/17 05:23 Toxic Granulation Not Reportable 02/22/17 05:23 Toxic Vacuolation Not Reportable 02/22/17 05:23 Dohle Bodies Not Reportable 02/22/17 05:23 Pelger-Huet Anomaly Not Reportable 02/22/17 05:23 Skip Rods Not Reportable 02/22/17 05:23 Platelet Estimate Not Reportable 02/22/17 05:23 Clumped Platelets Not Reportable 02/22/17 05:23 Plt Clumps, EDTA Not Reportable 02/22/17 05:23 Large Platelets Not Reportable 02/22/17 05:23 Giant Platelets Not Reportable 02/22/17 05:23 Platelet Satelliting Not Reportable 02/22/17 05:23 Plt Morphology Comment Not Reportable 02/22/17 05:23 RBC Morphology Normal 02/22/17 05:23 Dimorphic RBCs Not Reportable 02/22/17 05:23 Polychromasia Not Reportable 02/22/17 05:23 Hypochromasia Not Reportable 02/22/17 05:23 Poikilocytosis Not Reportable 02/22/17 05:23 Anisocytosis Not Reportable 02/22/17 05:23 Microcytosis Not Reportable 02/22/17 05:23 Macrocytosis Not Reportable 02/22/17 05:23 Spherocytes Not Reportable 02/22/17 05:23 Pappenheimer Bodies Not Reportable 02/22/17 05:23 Sickle Cells Not Reportable 02/22/17 05:23 Target Cells Not Reportable 02/22/17 05:23 Tear Drop Cells Not Reportable 02/22/17 05:23 Ovalocytes Not Reportable 02/22/17 05:23 Helmet Cells Not Reportable 02/22/17 05:23 [place] Bodies Not Reportable 02/22/17 05:23 Mina Rings Not Reportable 02/22/17 05:23 Garnett Cells Not Reportable 02/22/17 05:23 Bite Cells Not Reportable 02/22/17 05:23 Crenated Cell Not Reportable 02/22/17 05:23 Elliptocytes Not Reportable 02/22/17 05:23 Acanthocytes (Spur) Not Reportable 02/22/17 05:23 Rouleaux Not Reportable 02/22/17 05:23 Hemoglobin C Crystals Not Reportable 02/22/17 05:23 Schistocytes Not Reportable 02/22/17 05:23 Malaria parasites Not Reportable 02/22/17 05:23 Armando Bodies Not Reportable 02/22/17 05:23 Hem Pathologist Commnt No 02/22/17 05:23 PT 16.9 Sec. (12.2-14.9) H 02/21/17 11:01 INR 1.31 (0.87-1.13) H 02/21/17 11:01 VBG pH 7.399 (7.320-7.420) 02/21/17 11:01 Sodium 137 mmol/L (137-145) 02/23/17 06:44 Potassium 3.2 mmol/L (3.6-5.0) L 02/23/17 06:44 Chloride 101.0 mmol/L (98-107) 02/23/17 06:44 Carbon Dioxide 22 mmol/L (22-30) 02/23/17 06:44 Anion Gap 17 mmol/L 02/23/17 06:44 BUN 11 mg/dL (9-20) 02/23/17 06:44 Creatinine 1.0 mg/dL (0.8-1.5) 02/23/17 06:44 Estimated GFR > 60 ml/min 02/23/17 06:44 BUN/Creatinine Ratio 11 % 02/23/17 06:44 Glucose 135 mg/dL (75-100) H 02/23/17 06:44 Lactic Acid 2.30 mmol/L (0.7-2.0) H* 02/21/17 13:49 Calcium 7.7 mg/dL (8.4-10.2) L 02/23/17 06:44 Phosphorus 3.10 mg/dL (2.5-4.5) 02/23/17 06:44 Magnesium 1.80 mg/dL (1.7-2.3) 02/23/17 06:44 Total Bilirubin 0.80 mg/dL (0.1-1.2) 02/23/17 06:44 AST 25 units/L (5-40) 02/23/17 06:44 ALT 27 units/L (7-56) 02/23/17 06:44 Alkaline Phosphatase 65 units/L (35-129) 02/23/17 06:44 Total Creatine Kinase 69 units/L (55-170) 02/21/17 22:42 CK-MB (CK-2) 1.7 ng/mL (0.0-4.0) 02/21/17 22:42 CK-MB (CK-2) Rel Index 2.4 (0-4) 02/21/17 22:42 Troponin T < 0.010 ng/mL (0.00-0.029) 02/21/17 22:42 NT-Pro-B Natriuret Pep 2733 pg/mL (0-900) H 02/21/17 22:42 Total Protein 5.9 g/dL (6.3-8.2) L 02/23/17 06:44 Albumin 1.7 g/dL (3.9-5) L 02/23/17 06:44 Albumin/Globulin Ratio 0.4 % 02/23/17 06:44 Urine Color Karla (Yellow) 02/21/17 11:29 Urine Turbidity Clear (Clear) 02/21/17 11:29 Urine pH 5.0 (5.0-7.0) 02/21/17 11:29 Ur Specific Miranda 1.023 (1.003-1.030) 02/21/17 11:29 Urine Protein 30 mg/dl mg/dL (Negative) 02/21/17 11:29 Urine Glucose (UA) Neg mg/dL (Negative) 02/21/17 11:29 Urine Ketones Neg mg/dL (Negative) 02/21/17 11:29 Urine Blood Neg (Negative) 02/21/17 11:29 Urine Nitrite Neg (Negative) 02/21/17 11:29 Urine Bilirubin Neg (Negative) 02/21/17 11:29 Urine Urobilinogen 4.0 mg/dL (<2.0) 02/21/17 11:29 Ur Leukocyte Esterase Neg (Negative) 02/21/17 11:29 Urine WBC (Auto) 4.0 /HPF (0.0-6.0) 02/21/17 11:29 Urine RBC (Auto) 4.0 /HPF (0.0-6.0) 02/21/17 11:29 U Epithel Cells (Auto) < 1.0 /HPF (0-13.0) 02/21/17 11:29 Urine Mucus 1+ /HPF 02/21/17 11:29 Urine Opiates Screen Presumptive negative 02/21/17 11:29 Urine Methadone Screen Presumptive negative 02/21/17 11:29 Ur Barbiturates Screen Presumptive negative 02/21/17 11:29 Ur Phencyclidine Scrn Presumptive negative 02/21/17 11:29 Ur Amphetamines Screen Presumptive negative 02/21/17 11:29 U Benzodiazepines Scrn Presumptive negative 02/21/17 11:29 Urine Cocaine Screen Presumptive positive 02/21/17 11:29 U Marijuana (THC) Screen Presumptive positive 02/21/17 11:29 Drugs of Abuse Note Disclamer 02/21/17 11:29 Blood Type A POSITIVE 02/21/17 11:45 Antibody Screen TNR 02/21/17 11:45 ROMINA Antibody Screen Negative 02/21/17 11:45
--- NOTE | 2017-02-23 13:31 | Gastroenterology Consultation ---
History of Present Illness - Reason for Consult Consult date: 02/23/17 h/o achalasia, dysphagia Requesting physician: PO US - History of Present Illness Mr Patrick is a 51 yo male with reported history of achalasia, who presents with 2 week history of dysphagia to solids and liquids, productive cough, and fevers. Patient septic on admission, with imaging suggestive of PNA. Currently on abx, with improving wbc count and respiratory symptoms. Patient reports being diagnosed with achalasia at age 14. He states he had a procedure done at that time (dilatation per pt) which helped symptoms for ~8 months. However, due to pain related to procedure, he elected not to follow-up with GI and has been self-managing symptoms since that time. He has had chronic dysphagia to solids and liquids since that time. Symptoms fluctuate in severity. He has periods of time where he can tolerate oral intake, followed by periods of dysphagia to solids and liquids. He has been tolerating clears today. Denies abd pain, gi bleeding, change in bowel habits. UDS + for cocaine on admission. Patient does not have health insurance (states he lost his job several months ago). Past History Past Medical History: other (Achalasia) Past Surgical History: Other (L elbow surgery, ?esophageal dilatation at age 14) Social history: lives with family, smoking (in the past), full code, other (+ illicit drug use (cocaine, marijuana)) Family history: hypertension Medications and Allergies Allergies Allergy/AdvReac Type Severity Reaction Status Date / Time No Known Allergies Allergy Verified 02/21/17 10:38 Home Medications Medication Instructions Recorded Confirmed Last Taken Type No Known Home Medications [No 02/21/17 02/21/17 Unknown History Reported Home Medications] Active Meds: Active Medications Acetaminophen (Tylenol) 650 mg PO Q4H PRN PRN Reason: Pain MILD(1-3)/Fever >100.5/DENNISON Last Admin: 02/22/17 07:35 Dose: 650 mg Albuterol (Proventil) 2.5 mg IH Q4HRT PRN PRN Reason: Shortness Of Breath Albuterol/Ipratropium (Duoneb *Not For Prn Use*) 1 ampul IH Q6HRT KATHY Last Admin: 02/23/17 09:23 Dose: Not Given Benzocaine/Menthol (Cepacol X Strength) 1 each MM Q2HR PRN PRN Reason: Sore Throat Last Admin: 02/22/17 21:10 Dose: 1 each Bisacodyl (Dulcolax) 10 mg PA QDAY PRN PRN Reason: Constipation unrelieved by MOM Famotidine (Pepcid) 20 mg IV BID [facility] Last Admin: 02/23/17 10:33 Dose: 20 mg Heparin Sodium (Porcine) (Heparin) 5,000 unit SUB-Q Q8HR [facility] Last Admin: 02/23/17 05:02 Dose: 5,000 unit Hydromorphone HCl (Dilaudid) 0.5 mg IV Q3H PRN PRN Reason: Pain , Severe (7-10) Vancomycin HCl 2,000 mg/ (Sodium Chloride) 520 mls @ 250 mls/hr IV Q12H [facility] Last Admin: 02/23/17 00:20 Dose: 250 mls/hr Piperacillin Sod/Tazobactam Sod (Zosyn/Ns 4.5gm/100ml) 4.5 gm in 100 mls @ 200 mls/hr IV Q8HR [facility] PRN Reason: Protocol Last Admin: 02/23/17 05:10 Dose: 200 mls/hr Magnesium Hydroxide (Milk Of Magnesia) 30 ml PO Q4H PRN PRN Reason: Constipation Nicotine (Habitrol) 21 mg TD QDAY [facility] Last Admin: 02/23/17 10:34 Dose: 21 mg Ondansetron HCl (Zofran) 4 mg IV Q8H PRN PRN Reason: N/V unrelieved by Reglan Last Admin: 02/22/17 18:23 Dose: 4 mg Oxycodone/Acetaminophen (Percocet 5/325) 1 tab PO Q6H PRN PRN Reason: Pain, Moderate (4-6) Last Admin: 02/23/17 05:02 Dose: 1 tab Vancomycin HCl (Vancomycin Pharmacy To Dose) 1 each IV PKCONSULT [facility] PRN Reason: Protocol Review of Systems - Review of Systems All systems: negative Constitutional: weight loss Respiratory: cough, shortness of breath (rest per HPI) Exam - Constitutional Vital Signs: Temp Pulse Resp BP Pulse Ox 100.0 F H 94 H 18 122/69 87 02/23/17 04:49 02/23/17 04:52 02/23/17 04:49 02/23/17 04:52 02/23/17 08:52 General appearance: no acute distress - EENT Eyes: PERRL, EOM intact - Respiratory Respiratory effort: normal Respiratory: right: CTA, left: rales - Cardiovascular Rhythm: regular Heart Sounds: Present: S1 & S2 - Gastrointestinal General gastrointestinal: Present: soft, non-tender, non-distended, normal bowel sounds - Integumentary Integumentary: Present: clear, warm - Neurologic Neurological: alert and oriented x3 - Psychiatric Psychiatric: appropriate mood/affect - Labs CBC & Chem 7: 02/23/17 06:44 02/23/17 06:44 Lab Results: Laboratory Results - last 24 hr 02/23/17 02/23/17 06:44 06:44 WBC 14.3 H RBC 3.71 Hgb 10.1 L Hct 30.5 L MCV 82 L MCH 27 L MCHC 33 RDW 15.4 H Plt Count 277 Sodium 137 Potassium 3.2 L Chloride 101.0 Carbon Dioxide 22 Anion Gap 17 BUN 11 Creatinine 1.0 Estimated GFR > 60 BUN/Creatinine Ratio 11 Glucose 135 H Calcium 7.7 L Phosphorus 3.10 Magnesium 1.80 Total Bilirubin 0.80 AST 25 ALT 27 Alkaline Phosphatase 65 Total Protein 5.9 L Albumin 1.7 L Albumin/Globulin Ratio 0.4 - Imaging X-ray: report reviewed Assessment and Plan 1. dysphagia 2. Pneumonia 3. Sepsis -pt with reported history of achalasia, no records available regarding prior work-up. symptoms suggestive of motility disorder however. pt does not have insurance, so will initiate work-up while he is an inpatient. will obtain esophogram as initial study. Consider CT of chest. Will need eventual egd and likely manometry (can be done as outpatient after pneumonia is treated) to confirm diagnosis prior to determining best treatment options.
--- NOTE | 2017-02-23 18:01 | Progress Note ---
Assessment and Plan Patient alert, awake. Patient anxious. No acute respiratory distress.O2 saturation 92% on 2 litres O2. - Patient Problems (1) Left lower lobe pneumonia Current Visit: Yes Status: Acute Qualifiers: Pneumonia type: P Aspiration pneumonia type: A Plan to address problem: Patient is on zosyn and vancomycin. (2) Pleural effusion, left Current Visit: Yes Status: Acute Plan to address problem: Could be empyema. Considering thoracentesis. (3) COPD (chronic obstructive pulmonary disease) Current Visit: Yes Status: Chronic Qualifiers: COPD type: C Chronic bronchitis type: C Emphysema type: unspecified Qualified Code(s): J43.9 - Emphysema, unspecified Plan to address problem: O2 2 litres via nasal canula. Albuterol/Atrovent aerosol treatments.q 6 hours. (4) Achalasia Current Visit: Yes Status: Chronic Plan to address problem: Recommend to consult gastroenterology. (5) Hypotension Current Visit: Yes Status: Acute Qualifiers: Hypotension type: unspecified hypotension type Trimester: T Qualified Code(s): I95.9 - Hypotension, unspecified Plan to address problem: Improved after fluid resucitation. Todays blood pressure is 109/68. (6) Sepsis Current Visit: Yes Status: Acute Qualifiers: Sepsis type: sepsis due to unspecified organism Qualified Code(s): A41.9 - Sepsis, unspecified organism Plan to address problem: Patient is on Zosyn and vancomycin. (7) Cocaine abuse Current Visit: Yes Status: Acute Plan to address problem: Patient denying drug abuse. Subjective Date of service: 02/23/17 Interval history: Patient alert, awake. Patient anxious. No acute respiratory distress.O2 saturation 92% on 2 litres O2. Objective Vital Signs - 12hr 02/23/17 02/23/17 02/23/17 08:52 10:00 13:00 Pulse Rate 94 H O2 Sat by Pulse 87 98 Oximetry Constitutional: no acute distress, alert, other (Anxious.) Eyes: non-icteric ENT: oropharynx moist Neck: supple, no lymphadenopathy Ascultation: Left: diminished breath sounds (Dullness to percussion left base.) Cardiovascular: regular rate and rhythm Gastrointestinal: normoactive bowel sounds, soft, non-tender Integumentary: normal Extremities: no cyanosis, no edema Neurologic: normal mental status, non-focal exam, pupils equal and round, CN II- XII normal Psychiatric: anxious CBC and BMP: 02/23/17 06:44 02/23/17 06:44 ABG, PT/INR, D-dimer: PT/INR, D-dimer PT 16.9 Sec. (12.2-14.9) H 02/21/17 11:01 INR 1.31 (0.87-1.13) H 02/21/17 11:01 Abnormal lab findings: Abnormal Labs 02/21/17 02/21/17 02/22/17 13:49 22:42 05:23 WBC 20.2 H Hgb 10.3 L Hct 31.0 L MCV 83 L MCH RDW Seg Neuts % (Manual) 90.0 H Lymphocytes % (Manual) 5.0 L Seg Neutrophils # Man 18.2 H Lymphocytes # (Manual) 1.0 L Potassium Carbon Dioxide BUN Creatinine Glucose Lactic Acid 2.30 H* Calcium Magnesium 1.50 L NT-Pro-B Natriuret Pep 2733 H Total Protein Albumin 02/22/17 02/23/17 02/23/17 05:23 06:44 06:44 WBC 14.3 H Hgb 10.1 L Hct 30.5 L MCV 82 L MCH 27 L RDW 15.4 H Seg Neuts % (Manual) Lymphocytes % (Manual) Seg Neutrophils # Man Lymphocytes # (Manual) Potassium 3.1 L 3.2 L Carbon Dioxide 21 L BUN 8 L Creatinine 0.7 L Glucose 128 H 135 H Lactic Acid Calcium 7.6 L 7.7 L Magnesium NT-Pro-B Natriuret Pep Total Protein 6.1 L 5.9 L Albumin 1.9 L 1.7 L
[2017-02-24] MEDS: VANCOMYCIN 2,000 MG in NACL 0.9% 500 ML 500 ML IV SCH ×2 (02:11→15:42)
[2017-02-24] MEDS: ZOSYN/NS 4.5GM/100ML 4.5 GM/100 ML VIAL IV SCH ×3 (05:36→22:17)
[2017-02-24] MEDS: HEPARIN SUB-Q SCH ×2 (05:37→16:16)
--- NOTE | 2017-02-24 09:07 | Consultation ---
HISTORY OF PRESENT ILLNESS: This is a 51-year-old white male, admitted through the Emergency Room with a complaint of having a cough, shortness of breath, fever and chills for about 3 weeks duration. The patient is coughing up green sputum. He denies hemoptysis. The patient has a history of achalasia for many years. The patient also complaining a history of syncopal episodes. The patient on admission also blood pressure is low. The patient was given IV fluids. The patient's chest x-ray obtained showing a left lower lobe infiltrate and possible effusion and subsequently the patient has a CT of the chest, showed loculated effusion, could be empyema on the left lower lobe. The patient having a fever and chills. The patient said he is not eating well because of the achalasia. He is mostly taking liquids. He denies other medical problems like hypertension, diabetes, asthma, COPD, thyroid problems or heart problems, etc. The patient has a history of smoking half a pack for 1 week. This is for 12 years and he said he stopped 3 weeks ago. SOCIAL HISTORY: Denies alcohol or drug abuse. He is and has children one. Used to work as a truck salesman. ALLERGIES: He denies any allergies to the medications. PHYSICAL EXAMINATION: GENERAL: The patient is anxious, no acute respiratory distress. VITAL SIGNS: Temperature 98.9, pulse 96, respirations 18, O2 saturation 92% on room air. EYES: Pupils are equal and reactive. Extraocular muscles intact. Throat has slight inflammation. NECK: Supple, no lymphadenopathy, no carotid bruit. LUNGS: Decreased breath sounds left base and dullness to percussion left base. CARDIOVASCULAR: Regular rate and rhythm. ABDOMEN: Soft. Bowel sounds present. No CVA tenderness. MUSCULOSKELETAL: No edema, no clubbing, no cyanosis. NEUROLOGIC: DTRs present. Babinski negative. No focal neurological deficits. LABORATORY DATA: The patient's CBC: WBC 20.2, hemoglobin 10.3, hematocrit 31 and platelet count is 303,000. The patient's BMP: Sodium 137, potassium 3.1, BUN 8, creatinine 0.7, calcium 7.6, total protein 6.1, albumin 1.9. CAT scan of the chest, reported there is loculated extra pulmonic collection of the fluid and air at the left lung base measuring 12 x 14 cm. This suggests an emphysema and possible broncho fistula not excluded has been reported. There is also atelectasis, infiltrate of the left base and also advancing COPD, chronic appearing fibrotic and cystic changes. There is a mediastinal hilar adenopathy and esophagus is dilated, filled with fluid. IMPRESSION: 1. Left lower lobe pneumonia. 2. Left loculated pleural effusion, could be empyema. 3. Sepsis. 4. Achalasia. 5. Chronic obstructive pulmonary disease. 6. Hypotension. 7. Syncopal episode. PLAN: 1. Continue Zosyn and vancomycin. 2. Albuterol and Atrovent aerosol treatments q. 6 hours. 3. Oxygen supplementation 2 L via nasal cannula. O2 supplementation 2 L via nasal cannula. 4. ____ considering left thoracentesis under ultrasound guidance by interventional radiology. 5. Continue subcutaneous heparin. Continue Pepcid. I want to thank Dr. Alaniz for this consultation. I will follow the patient with him. JOB# [id number] RSM/NTS
--- NOTE | 2017-02-24 11:41 | XRay Report ---
BARIUM SWALLOW CHEST X-RAY, 2 VIEWS History: Dysphagia, achalasia. Findings: Fluoroscopy was utilized to evaluate the esophagus. Deglutition is normal. No aspiration. The esophagus is severely dilated and redundant measuring up to 8 cm in diameter. A bird beak deformity is identified in the distal esophagus just before the GE junction which is highly consistent with achalasia. There is delayed emptying of esophagus throughout this exam. No mucosal defect or mass is identified. Impression: Achalasia.
[2017-02-24] MEDS: PEPCID IV SCH ×2 (11:56→22:17)
[2017-02-24] MEDS: HABITROL TD SCH (11:57)
--- NOTE | 2017-02-24 15:42 | Event Note ---
Date: 02/24/17 Esophogram findings reviewed (not back at time of rounds this morning). Consistent with achalasia. He should have manometry as outpatient to determine type of achalasia followed by definitive treatment (likely heller myotomy). Will follow-up tomorrow and arrange for outpt follow-up.
--- NOTE | 2017-02-24 17:09 | Progress Note ---
Assessment and Plan Assessment and plan: Sepsis due to aspiration pneumonia - Patient is on IV Zosyn and vancomycin Sepsis with hypotension - He was treated with IV antibiotics and fluids, currently the patient's blood pressure is stable Left-sided pleural effusion/parapneumonic effusion - Continue IV antibiotics, patient will have thoracentesis by interventional radiology tomorrow Disequilibrium - Likely due to hypotension, currently resolved Achalasia - He has consulted and did esophagogram this morning - And will need manometry and management as outpatient COPD DVT prophylaxis with Heparin Full code status Disposition - Continue inpatient care History Interval history: Patient was seen and evaluated at the bedside, his father was in the room and an explain the management plan in detail. Hospitalist Physical - Physical exam Narrative exam: Not in cardiopulmonary distress. The patient appeared well nourished and normally developed. Vital signs as documented. Head exam is unremarkable. No scleral icterus . Neck is without jugular venous distension, thyromegaly, or carotid bruits. Lungs creptations on the posterior LLL zone. Cardiac exam reveals regular rate and Rhythm. First and second heart sounds normal. No murmurs, rubs or gallops. Abdominal exam reveals normal bowel sounds, no masses, no organomegaly and no aortic enlargement. Extremities are nonedematous and both femoral and pedal pulses are normal. 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 - Constitutional Vitals: Temp Pulse Resp BP Pulse Ox 98.6 F 76 20 108/70 91 02/24/17 04:35 02/24/17 10:10 02/24/17 10:10 02/24/17 10:10 02/24/17 10:10 General appearance: Present: mild distress, well-nourished Results - Labs CBC & Chem 7: 02/23/17 06:44 02/23/17 06:44 Labs: Laboratory Last Values WBC 14.3 K/mm3 (4.5-11.0) H 02/23/17 06:44 RBC 3.71 M/mm3 (3.65-5.03) 02/23/17 06:44 Hgb 10.1 gm/dl (11.8-15.2) L 02/23/17 06:44 Hct 30.5 % (35.5-45.6) L 02/23/17 06:44 MCV 82 fl (84-94) L 02/23/17 06:44 MCH 27 pg (28-32) L 02/23/17 06:44 MCHC 33 % (32-34) 02/23/17 06:44 RDW 15.4 % (13.2-15.2) H 02/23/17 06:44 Plt Count 277 K/mm3 (140-440) 02/23/17 06:44 Add Manual Diff Complete 02/22/17 05:23 Total Counted 100 02/22/17 05:23 Seg Neuts % (Manual) 90.0 % (40.0-70.0) H 02/22/17 05:23 Band Neutrophils % 3.0 % 02/22/17 05:23 Lymphocytes % (Manual) 5.0 % (13.4-35.0) L 02/22/17 05:23 Reactive Lymphs % (Man) 0 % 02/22/17 05:23 Monocytes % (Manual) 2.0 % (0.0-7.3) 02/22/17 05:23 Eosinophils % (Manual) 0 % (0.0-4.3) 02/22/17 05:23 Basophils % (Manual) 0 % (0.0-1.8) 02/22/17 05:23 Metamyelocytes % 0 % 02/22/17 05:23 Myelocytes % 0 % 02/22/17 05:23 Promyelocytes % 0 % 02/22/17 05:23 Blast Cells % 0 % 02/22/17 05:23 Nucleated RBC % Not Reportable 02/22/17 05:23 Seg Neutrophils # Man 18.2 K/mm3 (1.8-7.7) H 02/22/17 05:23 Band Neutrophils # 0.6 K/mm3 02/22/17 05:23 Lymphocytes # (Manual) 1.0 K/mm3 (1.2-5.4) L 02/22/17 05:23 Abs React Lymphs (Man) 0.0 K/mm3 02/22/17 05:23 Monocytes # (Manual) 0.4 K/mm3 (0.0-0.8) 02/22/17 05:23 Eosinophils # (Manual) 0.0 K/mm3 (0.0-0.4) 02/22/17 05:23 Basophils # (Manual) 0.0 K/mm3 (0.0-0.1) 02/22/17 05:23 Metamyelocytes # 0.0 K/mm3 02/22/17 05:23 Myelocytes # 0.0 K/mm3 02/22/17 05:23 Promyelocytes # 0.0 K/mm3 02/22/17 05:23 Blast Cells # 0.0 K/mm3 02/22/17 05:23 WBC Morphology Not Reportable 02/22/17 05:23 Hypersegmented Neuts Not Reportable 02/22/17 05:23 Hyposegmented Neuts Not Reportable 02/22/17 05:23 Hypogranular Neuts Not Reportable 02/22/17 05:23 Smudge Cells Not Reportable 02/22/17 05:23 Toxic Granulation Not Reportable 02/22/17 05:23 Toxic Vacuolation Not Reportable 02/22/17 05:23 Dohle Bodies Not Reportable 02/22/17 05:23 Pelger-Huet Anomaly Not Reportable 02/22/17 05:23 Skip Rods Not Reportable 02/22/17 05:23 Platelet Estimate Not Reportable 02/22/17 05:23 Clumped Platelets Not Reportable 02/22/17 05:23 Plt Clumps, EDTA Not Reportable 02/22/17 05:23 Large Platelets Not Reportable 02/22/17 05:23 Giant Platelets Not Reportable 02/22/17 05:23 Platelet Satelliting Not Reportable 02/22/17 05:23 Plt Morphology Comment Not Reportable 02/22/17 05:23 RBC Morphology Normal 02/22/17 05:23 Dimorphic RBCs Not Reportable 02/22/17 05:23 Polychromasia Not Reportable 02/22/17 05:23 Hypochromasia Not Reportable 02/22/17 05:23 Poikilocytosis Not Reportable 02/22/17 05:23 Anisocytosis Not Reportable 02/22/17 05:23 Microcytosis Not Reportable 02/22/17 05:23 Macrocytosis Not Reportable 02/22/17 05:23 Spherocytes Not Reportable 02/22/17 05:23 Pappenheimer Bodies Not Reportable 02/22/17 05:23 Sickle Cells Not Reportable 02/22/17 05:23 Target Cells Not Reportable 02/22/17 05:23 Tear Drop Cells Not Reportable 02/22/17 05:23 Ovalocytes Not Reportable 02/22/17 05:23 Helmet Cells Not Reportable 02/22/17 05:23 Raymundo-[place] Bodies Not Reportable 02/22/17 05:23 [place] Rings Not Reportable 02/22/17 05:23 [place] Cells Not Reportable 02/22/17 05:23 Bite Cells Not Reportable 02/22/17 05:23 Crenated Cell Not Reportable 02/22/17 05:23 Elliptocytes Not Reportable 02/22/17 05:23 Acanthocytes (Spur) Not Reportable 02/22/17 05:23 Rouleaux Not Reportable 02/22/17 05:23 Hemoglobin C Crystals Not Reportable 02/22/17 05:23 Schistocytes Not Reportable 02/22/17 05:23 Malaria parasites Not Reportable 02/22/17 05:23 Armando Bodies Not Reportable 02/22/17 05:23 Hem Pathologist Commnt No 02/22/17 05:23 PT 16.9 Sec. (12.2-14.9) H 02/21/17 11:01 INR 1.31 (0.87-1.13) H 02/21/17 11:01 VBG pH 7.399 (7.320-7.420) 02/21/17 11:01 Sodium 137 mmol/L (137-145) 02/23/17 06:44 Potassium 3.2 mmol/L (3.6-5.0) L 02/23/17 06:44 Chloride 101.0 mmol/L (98-107) 02/23/17 06:44 Carbon Dioxide 22 mmol/L (22-30) 02/23/17 06:44 Anion Gap 17 mmol/L 02/23/17 06:44 BUN 11 mg/dL (9-20) 02/23/17 06:44 Creatinine 1.0 mg/dL (0.8-1.5) 02/23/17 06:44 Estimated GFR > 60 ml/min 02/23/17 06:44 BUN/Creatinine Ratio 11 % 02/23/17 06:44 Glucose 135 mg/dL (75-100) H 02/23/17 06:44 Lactic Acid 2.30 mmol/L (0.7-2.0) H* 02/21/17 13:49 Calcium 7.7 mg/dL (8.4-10.2) L 02/23/17 06:44 Phosphorus 3.10 mg/dL (2.5-4.5) 02/23/17 06:44 Magnesium 1.80 mg/dL (1.7-2.3) 02/23/17 06:44 Total Bilirubin 0.80 mg/dL (0.1-1.2) 02/23/17 06:44 AST 25 units/L (5-40) 02/23/17 06:44 ALT 27 units/L (7-56) 02/23/17 06:44 Alkaline Phosphatase 65 units/L (35-129) 02/23/17 06:44 Total Creatine Kinase 69 units/L (55-170) 02/21/17 22:42 CK-MB (CK-2) 1.7 ng/mL (0.0-4.0) 02/21/17 22:42 CK-MB (CK-2) Rel Index 2.4 (0-4) 02/21/17 22:42 Troponin T < 0.010 ng/mL (0.00-0.029) 02/21/17 22:42 NT-Pro-B Natriuret Pep 2733 pg/mL (0-900) H 02/21/17 22:42 Total Protein 5.9 g/dL (6.3-8.2) L 02/23/17 06:44 Albumin 1.7 g/dL (3.9-5) L 02/23/17 06:44 Albumin/Globulin Ratio 0.4 % 02/23/17 06:44 Urine Color Karla (Yellow) 02/21/17 11:29 Urine Turbidity Clear (Clear) 02/21/17 11:29 Urine pH 5.0 (5.0-7.0) 02/21/17 11:29 Ur Specific [place] 1.023 (1.003-1.030) 02/21/17 11:29 Urine Protein 30 mg/dl mg/dL (Negative) 02/21/17 11:29 Urine Glucose (UA) Neg mg/dL (Negative) 02/21/17 11:29 Urine Ketones Neg mg/dL (Negative) 02/21/17 11:29 Urine Blood Neg (Negative) 02/21/17 11:29 Urine Nitrite Neg (Negative) 02/21/17 11:29 Urine Bilirubin Neg (Negative) 02/21/17 11:29 Urine Urobilinogen 4.0 mg/dL (<2.0) 02/21/17 11:29 Ur Leukocyte Esterase Neg (Negative) 02/21/17 11:29 Urine WBC (Auto) 4.0 /HPF (0.0-6.0) 02/21/17 11:29 Urine RBC (Auto) 4.0 /HPF (0.0-6.0) 02/21/17 11:29 U Epithel Cells (Auto) < 1.0 /HPF (0-13.0) 02/21/17 11:29 Urine Mucus 1+ /HPF 02/21/17 11:29 Vancomycin Trough 37.0 ug/mL (5.0-20.0) H 02/24/17 13:57 Urine Opiates Screen Presumptive negative 02/21/17 11:29 Urine Methadone Screen Presumptive negative 02/21/17 11:29 Ur Barbiturates Screen Presumptive negative 02/21/17 11:29 Ur Phencyclidine Scrn Presumptive negative 02/21/17 11:29 Ur Amphetamines Screen Presumptive negative 02/21/17 11:29 U Benzodiazepines Scrn Presumptive negative 02/21/17 11:29 Urine Cocaine Screen Presumptive positive 02/21/17 11:29 U Marijuana (THC) Screen Presumptive positive 02/21/17 11:29 Drugs of Abuse Note Disclamer 02/21/17 11:29 Blood Type A POSITIVE 02/21/17 11:45 Antibody Screen TNR 02/21/17 11:45 ROMINA Antibody Screen Negative 02/21/17 11:45
--- NOTE | 2017-02-24 20:11 | Progress Note ---
Assessment and Plan Patient alert, awake. Patient anxious. No acute respiratory distress.Walking in the room. O2 saturation 95% on 2 litres O2. Thoracentesis not done today. Left Thoracentesis by interventional radiology scheduled for tomorrow. - Patient Problems (1) Left lower lobe pneumonia Current Visit: Yes Status: Acute Qualifiers: Pneumonia type: P Aspiration pneumonia type: A Plan to address problem: Patient is on zosyn and vancomycin. (2) Pleural effusion, left Current Visit: Yes Status: Acute Plan to address problem: Could be empyema. Scheduled for thoracentesis tomorrow. (3) COPD (chronic obstructive pulmonary disease) Current Visit: Yes Status: Chronic Qualifiers: COPD type: C Chronic bronchitis type: C Emphysema type: unspecified Qualified Code(s): J43.9 - Emphysema, unspecified Plan to address problem: O2 2 litres via nasal canula. Albuterol/Atrovent aerosol treatments.q 6 hours. (4) Achalasia Current Visit: Yes Status: Chronic Plan to address problem: Recommend to consult gastroenterology. (5) Hypotension Current Visit: Yes Status: Acute Qualifiers: Hypotension type: unspecified hypotension type Trimester: T Qualified Code(s): I95.9 - Hypotension, unspecified Plan to address problem: Improved after fluid resucitation. Todays blood pressure is 106/73. (6) Sepsis Current Visit: Yes Status: Acute Qualifiers: Sepsis type: sepsis due to unspecified organism Qualified Code(s): A41.9 - Sepsis, unspecified organism Plan to address problem: Patient is on Zosyn and vancomycin. (7) Cocaine abuse Current Visit: Yes Status: Acute Plan to address problem: Patient denying drug abuse. Patients urine cocaine and urine [place] are positive. Subjective Date of service: 02/24/17 Interval history: Patient alert, awake. Patient anxious. No acute respiratory distress.Walking in the room. O2 saturation 95% on 2 litres O2. Thoracentesis not done today. Left Thoracentesis by interventional radiology schedule for tomorrow. Objective Vital Signs - 12hr 02/24/17 02/24/17 02/24/17 10:00 10:10 13:00 Temperature Pulse Rate 76 79 Respiratory 22 20 Rate Blood Pressure 108/70 O2 Sat by Pulse 95 91 Oximetry 02/24/17 02/24/17 16:55 16:56 Temperature 97.3 F L Pulse Rate 77 78 Respiratory 18 Rate Blood Pressure 106/73 O2 Sat by Pulse 93 95 Oximetry Constitutional: no acute distress, alert, other (Anxious.) Eyes: non-icteric ENT: oropharynx moist Neck: supple, no lymphadenopathy Ascultation: Left: diminished breath sounds (Dullness to percussion left base.) Cardiovascular: regular rate and rhythm Gastrointestinal: normoactive bowel sounds, soft, non-tender Integumentary: normal Extremities: no cyanosis, no edema Neurologic: normal mental status, non-focal exam, pupils equal and round, CN II- XII normal Psychiatric: anxious CBC and BMP: 02/23/17 06:44 02/23/17 06:44 ABG, PT/INR, D-dimer: PT/INR, D-dimer PT 16.9 Sec. (12.2-14.9) H 02/21/17 11:01 INR 1.31 (0.87-1.13) H 02/21/17 11:01 Abnormal lab findings: Abnormal Labs 02/21/17 02/21/17 02/22/17 13:49 22:42 05:23 WBC 20.2 H Hgb 10.3 L Hct 31.0 L MCV 83 L MCH RDW Seg Neuts % (Manual) 90.0 H Lymphocytes % (Manual) 5.0 L Seg Neutrophils # Man 18.2 H Lymphocytes # (Manual) 1.0 L Potassium Carbon Dioxide BUN Creatinine Glucose Lactic Acid 2.30 H* Calcium Magnesium 1.50 L NT-Pro-B Natriuret Pep 2733 H Total Protein Albumin Vancomycin Trough 02/22/17 02/23/17 02/23/17 05:23 06:44 06:44 WBC 14.3 H Hgb 10.1 L Hct 30.5 L MCV 82 L MCH 27 L RDW 15.4 H Seg Neuts % (Manual) Lymphocytes % (Manual) Seg Neutrophils # Man Lymphocytes # (Manual) Potassium 3.1 L 3.2 L Carbon Dioxide 21 L BUN 8 L Creatinine 0.7 L Glucose 128 H 135 H Lactic Acid Calcium 7.6 L 7.7 L Magnesium NT-Pro-B Natriuret Pep Total Protein 6.1 L 5.9 L Albumin 1.9 L 1.7 L Vancomycin Trough 02/24/17 13:57 WBC Hgb Hct MCV MCH RDW Seg Neuts % (Manual) Lymphocytes % (Manual) Seg Neutrophils # Man Lymphocytes # (Manual) Potassium Carbon Dioxide BUN Creatinine Glucose Lactic Acid Calcium Magnesium NT-Pro-B Natriuret Pep Total Protein Albumin Vancomycin Trough 37.0 H
[2017-02-24] MEDS: PERCOCET 5/325 PO PRN (20:15)
[2017-02-25] MEDS: VANCOMYCIN 2,000 MG in NACL 0.9% 500 ML 500 ML IV SCH (02:41)
[2017-02-25 07:06] LABS: Basophils % (Auto) 0.6 % (0.0-1.8); Eosinophils % (Auto) 0.8 % (0.0-4.3); Hematocrit 31.8 % (35.5-45.6); Hemoglobin 10.6 gm/dl (11.8-15.2); Mean Corpuscular HGB Conc 34 % (32-34); Mean Corpuscular Hemoglobin 28 pg (28-32); Mean Corpuscular Volume 82 fl (84-94); Platelet Count 327 K/mm3 (140-440); Red Blood Count 3.86 M/mm3 (3.65-5.03); Red Cell Distribution Width 15.5 % (13.2-15.2); White Blood Count 10.3 K/mm3 (4.5-11.0)
[2017-02-25 07:15] LABS: INR 1.26 (0.87-1.13)
[2017-02-25 07:24] LABS: Calcium 7.7 mg/dL (8.4-10.2); Chloride 99.3 mmol/L (98-107); Potassium 3.4 mmol/L (3.6-5.0)
[2017-02-25] MEDS: PEPCID IV SCH (09:13)
[2017-02-25] MEDS: HABITROL TD SCH (09:17)
[2017-02-25] MEDS: ZOSYN/NS 4.5GM/100ML 4.5 GM/100 ML VIAL IV SCH (09:17)
--- NOTE | 2017-02-25 11:46 | Ultrasound Report ---
ULTRASOUND THORACENTESIS INDICATION: Loculated left pleural effusion. COMPARISON: None similar. FINDINGS: Ultrasound guided left thoracentesis performed. Written informed consent obtained after explaining the risks and benefits. Patient brought in the ultrasound room. An appropriate skin site marked. Using standard sterile precautions and 1% lidocaine for local anesthesia, 5 [place] Yueh catheter advanced into the complex pleural fluid. Total of approximately 50 cc of greenish yellow pus obtained with sample sent to the lab. Catheter removed and hemostasis achieved. Patient returned to room. No immediate complications. CONCLUSION: Status post left thoracentesis, as described. A 2 hour post procedure chest x-ray ordered. Dr. Hammond present for and performed the entire procedure. Thank you for the opportunity to participate in this patient's care.
--- NOTE | 2017-02-25 11:50 | Procedure Note ---
Date of procedure: 02/25/17 Pre-op diagnosis: Loculated left pleural fluid Post-op diagnosis: same Procedure: US guided thoracentesis Findings: 50 cc greenish pus aspirated. Anesthesia: local Surgeon: SOL HODGES Estimated blood loss: none Specimen disposition: to lab Condition: stable Disposition: floor
[2017-02-25] MEDS ORDERED: ZOSYN/NS 2.25 GM/50ML 2.25 GM/50 ML BAG IV SCH (13:00)
[2017-02-25] MEDS: TYLENOL PO PRN (13:51)
--- NOTE | 2017-02-25 14:04 | XRay Report ---
Single view chest: History: Post left thoracentesis. Findings: Cardiomegaly. Trachea is midline. Loculated fluid is identified in the left pleural cavity. Ill-defined opacities in the adjacent lung may be pneumonitis and/or scarring. Impression: Minimal loculated fluid in left pleural cavity adjacent to the diaphragm. Additional findings as detailed.
[2017-02-25 14:35] LABS: Monocytes Body Fluid 3 %
[2017-02-25] MEDS: ZOSYN/NS 2.25 GM/50ML 2.25 GM/50 ML BAG IV SCH ×2 (15:08→23:00)
--- NOTE | 2017-02-25 16:32 | Progress Note ---
Assessment and Plan Assessment and plan: Sepsis due to aspiration pneumonia - Patient is on IV Zosyn and vancomycin; renally dosed Sepsis with hypotension - He was treated with IV antibiotics and fluids, currently the patient's blood pressure is stable Left-sided pleural effusion/parapneumonic effusion - Continue IV antibiotics, patient will had thoracentesis by interventional radiology this morning and 50ml of greenish thick fluid was taken out and sent for analysis Disequilibrium - Likely due to hypotension, currently resolved Achalasia - He has consulted and did esophagogram and showed achalasia - And will need manometry and management as outpatient COPD ROXIE - Will renally dose the medications - IV fluid 125ml/hr - Nephrology consult DVT prophylaxis with Heparin Full code status Disposition - Continue inpatient care History Interval history: Patient was seen and evaluated at the bedside, He came back from thoracentesis and no pain or bleeding after the procedure. Hospitalist Physical - Physical exam Narrative exam: Not in cardiopulmonary distress. The patient appeared well nourished and normally developed. Vital signs as documented. Head exam is unremarkable. No scleral icterus . Neck is without jugular venous distension, thyromegaly, or carotid bruits. Lungs creptations on the posterior LLL zone. Cardiac exam reveals regular rate and Rhythm. First and second heart sounds normal. No murmurs, rubs or gallops. Abdominal exam reveals normal bowel sounds, no masses, no organomegaly and no aortic enlargement. Extremities are nonedematous and both femoral and pedal pulses are normal. 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 - Constitutional Vitals: Temp Pulse Resp BP Pulse Ox 98.5 F 84 22 106/70 93 02/25/17 08:56 02/25/17 13:00 02/25/17 09:19 02/25/17 08:56 02/25/17 10:00 General appearance: Present: mild distress, well-nourished Results - Labs CBC & Chem 7: 02/25/17 06:40 02/25/17 06:40 Labs: Laboratory Last Values WBC 10.3 K/mm3 (4.5-11.0) 02/25/17 06:40 RBC 3.86 M/mm3 (3.65-5.03) 02/25/17 06:40 Hgb 10.6 gm/dl (11.8-15.2) L 02/25/17 06:40 Hct 31.8 % (35.5-45.6) L 02/25/17 06:40 MCV 82 fl (84-94) L 02/25/17 06:40 MCH 28 pg (28-32) 02/25/17 06:40 MCHC 34 % (32-34) 02/25/17 06:40 RDW 15.5 % (13.2-15.2) H 02/25/17 06:40 Plt Count 327 K/mm3 (140-440) 02/25/17 06:40 Lymph % (Auto) 9.1 % (13.4-35.0) L 02/25/17 06:40 [place] % (Auto) 9.9 % (0.0-7.3) H 02/25/17 06:40 Eos % (Auto) 0.8 % (0.0-4.3) 02/25/17 06:40 Baso % (Auto) 0.6 % (0.0-1.8) 02/25/17 06:40 Lymph # 0.9 K/mm3 (1.2-5.4) L 02/25/17 06:40 [place] # 1.0 K/mm3 (0.0-0.8) H 02/25/17 06:40 Eos # 0.1 K/mm3 (0.0-0.4) 02/25/17 06:40 Baso # 0.1 K/mm3 (0.0-0.1) 02/25/17 06:40 Add Manual Diff Complete 02/22/17 05:23 Total Counted 100 02/22/17 05:23 Seg Neutrophils % 79.6 % (40.0-70.0) H 02/25/17 06:40 Seg Neuts % (Manual) 90.0 % (40.0-70.0) H 02/22/17 05:23 Band Neutrophils % 3.0 % 02/22/17 05:23 Lymphocytes % (Manual) 5.0 % (13.4-35.0) L 02/22/17 05:23 Reactive Lymphs % (Man) 0 % 02/22/17 05:23 Monocytes % (Manual) 2.0 % (0.0-7.3) 02/22/17 05:23 Eosinophils % (Manual) 0 % (0.0-4.3) 02/22/17 05:23 Basophils % (Manual) 0 % (0.0-1.8) 02/22/17 05:23 Metamyelocytes % 0 % 02/22/17 05:23 Myelocytes % 0 % 02/22/17 05:23 Promyelocytes % 0 % 02/22/17 05:23 Blast Cells % 0 % 02/22/17 05:23 Nucleated RBC % Not Reportable 02/22/17 05:23 Seg Neutrophils # 8.2 K/mm3 (1.8-7.7) H 02/25/17 06:40 Seg Neutrophils # Man 18.2 K/mm3 (1.8-7.7) H 02/22/17 05:23 Band Neutrophils # 0.6 K/mm3 02/22/17 05:23 Lymphocytes # (Manual) 1.0 K/mm3 (1.2-5.4) L 02/22/17 05:23 Abs React Lymphs (Man) 0.0 K/mm3 02/22/17 05:23 Monocytes # (Manual) 0.4 K/mm3 (0.0-0.8) 02/22/17 05:23 Eosinophils # (Manual) 0.0 K/mm3 (0.0-0.4) 02/22/17 05:23 Basophils # (Manual) 0.0 K/mm3 (0.0-0.1) 02/22/17 05:23 Metamyelocytes # 0.0 K/mm3 02/22/17 05:23 Myelocytes # 0.0 K/mm3 02/22/17 05:23 Promyelocytes # 0.0 K/mm3 02/22/17 05:23 Blast Cells # 0.0 K/mm3 02/22/17 05:23 WBC Morphology Not Reportable 02/22/17 05:23 Hypersegmented Neuts Not Reportable 02/22/17 05:23 Hyposegmented Neuts Not Reportable 02/22/17 05:23 Hypogranular Neuts Not Reportable 02/22/17 05:23 Smudge Cells Not Reportable 02/22/17 05:23 Toxic Granulation Not Reportable 02/22/17 05:23 Toxic Vacuolation Not Reportable 02/22/17 05:23 Dohle Bodies Not Reportable 02/22/17 05:23 Pelger-Huet Anomaly Not Reportable 02/22/17 05:23 Skip Rods Not Reportable 02/22/17 05:23 Platelet Estimate Not Reportable 02/22/17 05:23 Clumped Platelets Not Reportable 02/22/17 05:23 Plt Clumps, EDTA Not Reportable 02/22/17 05:23 Large Platelets Not Reportable 02/22/17 05:23 Giant Platelets Not Reportable 02/22/17 05:23 Platelet Satelliting Not Reportable 02/22/17 05:23 Plt Morphology Comment Not Reportable 02/22/17 05:23 RBC Morphology Normal 02/22/17 05:23 Dimorphic RBCs Not Reportable 02/22/17 05:23 Polychromasia Not Reportable 02/22/17 05:23 Hypochromasia Not Reportable 02/22/17 05:23 Poikilocytosis Not Reportable 02/22/17 05:23 Anisocytosis Not Reportable 02/22/17 05:23 Microcytosis Not Reportable 02/22/17 05:23 Macrocytosis Not Reportable 02/22/17 05:23 Spherocytes Not Reportable 02/22/17 05:23 Pappenheimer Bodies Not Reportable 02/22/17 05:23 Sickle Cells Not Reportable 02/22/17 05:23 Target Cells Not Reportable 02/22/17 05:23 Tear Drop Cells Not Reportable 02/22/17 05:23 Ovalocytes Not Reportable 02/22/17 05:23 Helmet Cells Not Reportable 02/22/17 05:23 Raymundo-[place] Bodies Not Reportable 02/22/17 05:23 [place] Rings Not Reportable 02/22/17 05:23 [place] Cells Not Reportable 02/22/17 05:23 Bite Cells Not Reportable 02/22/17 05:23 Crenated Cell Not Reportable 02/22/17 05:23 Elliptocytes Not Reportable 02/22/17 05:23 Acanthocytes (Spur) Not Reportable 02/22/17 05:23 Rouleaux Not Reportable 02/22/17 05:23 Hemoglobin C Crystals Not Reportable 02/22/17 05:23 Schistocytes Not Reportable 02/22/17 05:23 Malaria parasites Not Reportable 02/22/17 05:23 Armando Bodies Not Reportable 02/22/17 05:23 Hem Pathologist Commnt No 02/22/17 05:23 PT 16.4 Sec. (12.2-14.9) H 02/25/17 06:40 INR 1.26 (0.87-1.13) H 02/25/17 06:40 APTT 33.0 Sec. (24.2-36.6) 02/25/17 06:40 VBG pH 7.399 (7.320-7.420) 02/21/17 11:01 Sodium 136 mmol/L (137-145) L 02/25/17 06:40 Potassium 3.4 mmol/L (3.6-5.0) L 02/25/17 06:40 Chloride 99.3 mmol/L (98-107) 02/25/17 06:40 Carbon Dioxide 21 mmol/L (22-30) L 02/25/17 06:40 Anion Gap 19 mmol/L 02/25/17 06:40 BUN 21 mg/dL (9-20) H 02/25/17 06:40 Creatinine 3.7 mg/dL (0.8-1.5) H D 02/25/17 06:40 Estimated GFR 17 ml/min 02/25/17 06:40 BUN/Creatinine Ratio 6 % 02/25/17 06:40 Glucose 126 mg/dL (75-100) H 02/25/17 06:40 Lactic Acid 2.30 mmol/L (0.7-2.0) H* 02/21/17 13:49 Calcium 7.7 mg/dL (8.4-10.2) L 02/25/17 06:40 Phosphorus 3.10 mg/dL (2.5-4.5) 02/23/17 06:44 Magnesium 1.80 mg/dL (1.7-2.3) 02/23/17 06:44 Total Bilirubin 0.80 mg/dL (0.1-1.2) 02/23/17 06:44 AST 25 units/L (5-40) 02/23/17 06:44 ALT 27 units/L (7-56) 02/23/17 06:44 Alkaline Phosphatase 65 units/L (35-129) 02/23/17 06:44 Total Creatine Kinase 69 units/L (55-170) 02/21/17 22:42 CK-MB (CK-2) 1.7 ng/mL (0.0-4.0) 02/21/17 22:42 CK-MB (CK-2) Rel Index 2.4 (0-4) 02/21/17 22:42 Troponin T < 0.010 ng/mL (0.00-0.029) 02/21/17 22:42 NT-Pro-B Natriuret Pep 2733 pg/mL (0-900) H 02/21/17 22:42 Total Protein 5.9 g/dL (6.3-8.2) L 02/23/17 06:44 Albumin 1.7 g/dL (3.9-5) L 02/23/17 06:44 Albumin/Globulin Ratio 0.4 % 02/23/17 06:44 Urine Color Karla (Yellow) 02/21/17 11:29 Urine Turbidity Clear (Clear) 02/21/17 11:29 Urine pH 5.0 (5.0-7.0) 02/21/17 11:29 Ur Specific [place] 1.023 (1.003-1.030) 02/21/17 11:29 Urine Protein 30 mg/dl mg/dL (Negative) 02/21/17 11:29 Urine Glucose (UA) Neg mg/dL (Negative) 02/21/17 11:29 Urine Ketones Neg mg/dL (Negative) 02/21/17 11:29 Urine Blood Neg (Negative) 02/21/17 11:29 Urine Nitrite Neg (Negative) 02/21/17 11:29 Urine Bilirubin Neg (Negative) 02/21/17 11:29 Urine Urobilinogen 4.0 mg/dL (<2.0) 02/21/17 11:29 Ur Leukocyte Esterase Neg (Negative) 02/21/17 11:29 Urine WBC (Auto) 4.0 /HPF (0.0-6.0) 02/21/17 11:29 Urine RBC (Auto) 4.0 /HPF (0.0-6.0) 02/21/17 11:29 U Epithel Cells (Auto) < 1.0 /HPF (0-13.0) 02/21/17 11:29 Urine Mucus 1+ /HPF 02/21/17 11:29 Fluid Type Pleural 02/25/17 Unknown Fluid Color Straw 02/25/17 Unknown Fluid Appearance Turbid 02/25/17 Unknown Fluid WBC 08688 /mm3 02/25/17 Unknown Fluid RBC 1071 /mm3 02/25/17 Unknown Fluid Seg Neutrophils 97.0 % 02/25/17 Unknown Fluid Lymphocytes Not Reportable 02/25/17 Unknown Fluid Reactive Lymphs Pr Manager 02/25/17 Unknown Fluid Monocytes 3 % 02/25/17 Unknown Fluid Eosinophils Not Reportable 02/25/17 Unknown Fluid Basophils Not Reportable 02/25/17 Unknown Vancomycin Trough 37.0 ug/mL (5.0-20.0) H 02/24/17 13:57 Urine Opiates Screen Presumptive negative 02/21/17 11:29 Urine Methadone Screen Presumptive negative 02/21/17 11:29 Ur Barbiturates Screen Presumptive negative 02/21/17 11:29 Ur Phencyclidine Scrn Presumptive negative 02/21/17 11:29 Ur Amphetamines Screen Presumptive negative 02/21/17 11:29 U Benzodiazepines Scrn Presumptive negative 02/21/17 11:29 Urine Cocaine Screen Presumptive positive 02/21/17 11:29 U Marijuana (THC) Screen Presumptive positive 02/21/17 11:29 Drugs of Abuse Note Disclamer 02/21/17 11:29 Blood Type A POSITIVE 02/21/17 11:45 Antibody Screen TNR 02/21/17 11:45 ROMINA Antibody Screen Negative 02/21/17 11:45
--- NOTE | 2017-02-25 17:05 | Consultation ---
History of Present Illness - Reason for Consult Consult date: 02/25/17 acute renal failure Requesting physician: MELIA BONNER - History of Present Illness Mr. Patrick is a 51-year-old male with past medical history significant for achalasia presented to the emergency room with fever and chills for several weeks. He has been diagnosed with pneumonia and has been admitted. His blood pressure was low on admission requiring fluid bolus. His serum creatinine was normal at 0.7 on admission. It was 1.0 day before yesterday. Today his serum creatinine went up to 3.7 and therefore this consultation. Patient is currently nonoliguric. His blood pressure has been in the low 100s. No recent drop in blood pressure since then. He does not have any difficulty passing urine. He also denies any history of nonsteroidal intake. Past History Past Medical History: other (Achalasia) Past Surgical History: Other (L elbow surgery, ?esophageal dilatation at age 14) Social history: lives with family, smoking (in the past), full code, other (+ illicit drug use (cocaine, marijuana)) Family history: hypertension Medications and Allergies Allergies Allergy/AdvReac Type Severity Reaction Status Date / Time No Known Allergies Allergy Verified 02/21/17 10:38 Home Medications Medication Instructions Recorded Confirmed Last Taken Type No Known Home Medications [No 02/21/17 02/21/17 Unknown History Reported Home Medications] Active Meds: Active Medications Acetaminophen (Tylenol) 650 mg PO Q4H PRN PRN Reason: Pain MILD(1-3)/Fever >100.5/DENNISON Last Admin: 02/25/17 13:51 Dose: 650 mg Albuterol (Proventil) 2.5 mg IH Q4HRT PRN PRN Reason: Shortness Of Breath Benzocaine/Menthol (Cepacol X Strength) 1 each MM Q2HR PRN PRN Reason: Sore Throat Last Admin: 02/22/17 21:10 Dose: 1 each Bisacodyl (Dulcolax) 10 mg HI QDAY PRN PRN Reason: Constipation unrelieved by MOM Famotidine (Pepcid) 20 mg PO BID KATHY Hydromorphone HCl (Dilaudid) 0.5 mg IV Q3H PRN PRN Reason: Pain , Severe (7-10) Piperacillin Sod/Tazobactam Sod (Zosyn/Ns 2.25 Gm/50ml) 2.25 gm in 50 mls @ 100 mls/hr IV Q6H [facility] Last Admin: 02/25/17 15:08 Dose: 100 mls/hr Magnesium Hydroxide (Milk Of Magnesia) 30 ml PO Q4H PRN PRN Reason: Constipation Nicotine (Habitrol) 21 mg TD QDAY [facility] Last Admin: 02/25/17 09:17 Dose: Not Given Ondansetron HCl (Zofran) 4 mg IV Q8H PRN PRN Reason: N/V unrelieved by Reglan Last Admin: 02/22/17 18:23 Dose: 4 mg Oxycodone/Acetaminophen (Percocet 5/325) 1 tab PO Q6H PRN PRN Reason: Pain, Moderate (4-6) Last Admin: 02/24/17 20:15 Dose: 1 tab Vancomycin HCl (Vancomycin Pharmacy To Dose) 1 each IV PKCONSULT KATHY PRN Reason: Protocol Review of Systems All systems: negative (except as noted above) Exam - Vital Signs Vital signs: Vital Signs Resp BP 18 65/49 02/21/17 10:35 02/21/17 10:35 - General Appearance General appearance: well-developed, well-nourished, appears stated age EENT: PERRL, mucous membranes moist Neck: Present: neck supple, trachea midline. Absent: JVD/HJR, Masses Respiratory: Ronchi (few scattered rhonchi) Heart: regular, normal heart rate, S1S2, no murmurs Gastrointestinal: Present: normal, normoactive bowel sounds Integumentary: no rash, warm and dry, other (no edema) Results - Lab Results 02/25/17 06:40 02/25/17 06:40 Most recent lab results Calcium 7.7 mg/dL (8.4-10.2) L 02/25/17 06:40 Phosphorus 3.10 mg/dL (2.5-4.5) 02/23/17 06:44 Magnesium 1.80 mg/dL (1.7-2.3) 02/23/17 06:44 Assessment and Plan Impression * Acute renal failure. Rate of rise of creatinine seems to be quite rapid. Consistent with ATN and/or rhabdomyolysis. Although patient was hypotensive on admission his serum creatinine did not start to rise for a good 48 hours after admission. Agree with rechecking his chemistries * Pleural effusion with possible underlying pneumonia * Achalasia Recommendations * Shall check a UA as well as a fractional excretion of sodium * Renal ultrasound to assess kidney size and echogenicity * Shall do vasculitis workup as well * Avoid nephrotoxins * Strict intake and output * Agree with IV hydration * Shall check a CPK level as well * Monitor patient's renal function and electrolytes closely * Thank you very much for the consultation. Shall follow along with you
[2017-02-25] MEDS: NACL 0.9% 1000 ML 1,000 ML IV SCH (18:53)
[2017-02-25 19:04] LABS: Calcium 7.5 mg/dL (8.4-10.2); Chloride 100.8 mmol/L (98-107); Potassium 3.6 mmol/L (3.6-5.0)
--- NOTE | 2017-02-25 19:11 | Progress Note ---
Assessment and Plan Patient alert, awake. No acute respiratory distress.O2 saturation 96% on room air. Patient undergone left thoracentesis.Small amount of fluid obtained and it for examination. Pleural fluid WBC count [id number] . Remaining other results pending.Appears pleural fluid is parapneumonic or empyema.Pleural fluid chemistry and cytology results pending. - Patient Problems (1) Left lower lobe pneumonia Current Visit: Yes Status: Acute Qualifiers: Pneumonia type: P Aspiration pneumonia type: A Plan to address problem: Patient is on zosyn and vancomycin. (2) Pleural effusion, left Current Visit: Yes Status: Acute Plan to address problem: Could be empyema. Scheduled for thoracentesis tomorrow. (3) COPD (chronic obstructive pulmonary disease) Current Visit: Yes Status: Chronic Qualifiers: COPD type: C Chronic bronchitis type: C Emphysema type: unspecified Qualified Code(s): J43.9 - Emphysema, unspecified Plan to address problem: O2 2 litres via nasal canula. Albuterol/Atrovent aerosol treatments.q 6 hours. (4) Achalasia Current Visit: Yes Status: Chronic Plan to address problem: Recommend to consult gastroenterology. (5) Hypotension Current Visit: Yes Status: Acute Qualifiers: Hypotension type: unspecified hypotension type Trimester: T Qualified Code(s): I95.9 - Hypotension, unspecified Plan to address problem: Improved after fluid resucitation. Todays blood pressure is 116/74. (6) Sepsis Current Visit: Yes Status: Acute Qualifiers: Sepsis type: sepsis due to unspecified organism Plan to address problem: Patient is on Zosyn and vancomycin. (7) Cocaine abuse Current Visit: Yes Status: Acute Plan to address problem: Patient denying drug abuse. Patients urine cocaine and urine Maru[place] are positive. Subjective Date of service: 02/25/17 Interval history: Patient alert, awake. No acute respiratory distress.O2 saturation 96% on room air. Patient undergone left thoracentesis.Small amount of fluid obtained and it for examination. Pleural fluid WBC count [id number] . Remaining other results pending.Appears pleural fluid is parapneumonic or empyema.Pleural fluid chemistry and cytology results pending. Objective Vital Signs - 12hr 02/25/17 02/25/17 02/25/17 08:27 08:56 09:19 Temperature 98.5 F Pulse Rate 84 77 Respiratory 22 Rate Respiratory 22 Rate [Chest] Blood Pressure 106/70 [Right] O2 Sat by Pulse 96 Oximetry 02/25/17 02/25/17 10:00 13:00 Temperature Pulse Rate 84 Respiratory Rate Respiratory Rate [Chest] Blood Pressure [Right] O2 Sat by Pulse 93 Oximetry Constitutional: no acute distress, alert, other (Anxious.) Eyes: non-icteric ENT: oropharynx moist Neck: supple, no lymphadenopathy Ascultation: Left: diminished breath sounds (Dullness to percussion left base.) Cardiovascular: regular rate and rhythm Gastrointestinal: normoactive bowel sounds, soft, non-tender Integumentary: normal Extremities: no cyanosis, no edema Neurologic: normal mental status, non-focal exam, pupils equal and round, CN II- XII normal Psychiatric: anxious CBC and BMP: 02/25/17 06:40 02/25/17 17:48 ABG, PT/INR, D-dimer: PT/INR, D-dimer PT 16.4 Sec. (12.2-14.9) H 02/25/17 06:40 INR 1.26 (0.87-1.13) H 02/25/17 06:40 Abnormal lab findings: Abnormal Labs 02/21/17 02/21/17 02/22/17 13:49 22:42 05:23 WBC 20.2 H Hgb 10.3 L Hct 31.0 L MCV 83 L MCH RDW Lymph % (Auto) [place] % (Auto) Lymph # [place] # Seg Neutrophils % Seg Neuts % (Manual) 90.0 H Lymphocytes % (Manual) 5.0 L Seg Neutrophils # Seg Neutrophils # Man 18.2 H Lymphocytes # (Manual) 1.0 L PT INR Sodium Potassium Carbon Dioxide BUN Creatinine Glucose Lactic Acid 2.30 H* Calcium Magnesium 1.50 L NT-Pro-B Natriuret Pep 2733 H Total Protein Albumin Vancomycin Trough 02/22/17 02/23/17 02/23/17 05:23 06:44 06:44 WBC 14.3 H Hgb 10.1 L Hct 30.5 L MCV 82 L MCH 27 L RDW 15.4 H Lymph % (Auto) [place] % (Auto) Lymph # [place] # Seg Neutrophils % Seg Neuts % (Manual) Lymphocytes % (Manual) Seg Neutrophils # Seg Neutrophils # Man Lymphocytes # (Manual) PT INR Sodium Potassium 3.1 L 3.2 L Carbon Dioxide 21 L BUN 8 L Creatinine 0.7 L Glucose 128 H 135 H Lactic Acid Calcium 7.6 L 7.7 L Magnesium NT-Pro-B Natriuret Pep Total Protein 6.1 L 5.9 L Albumin 1.9 L 1.7 L Vancomycin Trough 02/24/17 02/25/17 02/25/17 13:57 06:40 06:40 WBC Hgb 10.6 L Hct 31.8 L MCV 82 L MCH RDW 15.5 H Lymph % (Auto) 9.1 L [place] % (Auto) 9.9 H Lymph # 0.9 L [place] # 1.0 H Seg Neutrophils % 79.6 H Seg Neuts % (Manual) Lymphocytes % (Manual) Seg Neutrophils # 8.2 H Seg Neutrophils # Man Lymphocytes # (Manual) PT INR Sodium 136 L Potassium 3.4 L Carbon Dioxide 21 L BUN 21 H Creatinine 3.7 H D Glucose 126 H Lactic Acid Calcium 7.7 L Magnesium NT-Pro-B Natriuret Pep Total Protein Albumin Vancomycin Trough 37.0 H 02/25/17 02/25/17 06:40 17:48 WBC Hgb Hct MCV MCH RDW Lymph % (Auto) [place] % (Auto) Lymph # [place] # Seg Neutrophils % Seg Neuts % (Manual) Lymphocytes % (Manual) Seg Neutrophils # Seg Neutrophils # Man Lymphocytes # (Manual) PT 16.4 H INR 1.26 H Sodium Potassium Carbon Dioxide BUN 22 H Creatinine 3.9 H Glucose 111 H Lactic Acid Calcium 7.5 L Magnesium NT-Pro-B Natriuret Pep Total Protein Albumin Vancomycin Trough
[2017-02-25 20:12] LABS: HIV-1 Antigen p24 Non React (Non React); HIVR-1/2 Ab Non React (Non React)
[2017-02-25] MEDS: PEPCID PO SCH (21:49)
[2017-02-25] MEDS: RESTORIL PO PRN (21:49)
[2017-02-26 00:49] LABS: Bilirubin,Urine NEG (Negative); Blood,Urine SM (Negative); Fractional Sodium Excretion 1.8; Ketones,Urine NEG (Negative); Leukocyte Esterase,Urine NEG (Negative); Mucus,Urine FEW /HPF; Nitrite,Urine NEG (Negative); Protein,Urine <15 mg/dL mg/dL (Negative); Urobilinogen,Urine < 2.0 mg/dL (<2.0); WBC,Urine < 1.0 /HPF (0.0-6.0)
[2017-02-26 00:52] LABS: RBC,Urine < 1.0 /HPF (0.0-6.0)
[2017-02-26] MEDS: NACL 0.9% 1000 ML 1,000 ML IV SCH (03:00)
[2017-02-26] MEDS: ZOSYN/NS 2.25 GM/50ML 2.25 GM/50 ML BAG IV SCH ×4 (05:26→19:55)
[2017-02-26 06:27] LABS: Basophils % (Auto) 0.9 % (0.0-1.8); Hematocrit 31.9 % (35.5-45.6); Hemoglobin 10.8 gm/dl (11.8-15.2); Mean Corpuscular HGB Conc 34 % (32-34); Mean Corpuscular Hemoglobin 28 pg (28-32); Mean Corpuscular Volume 83 fl (84-94); Platelet Count 325 K/mm3 (140-440); Red Blood Count 3.86 M/mm3 (3.65-5.03); Red Cell Distribution Width 15.4 % (13.2-15.2); White Blood Count 8.8 K/mm3 (4.5-11.0)
[2017-02-26 06:43] LABS: Calcium 7.6 mg/dL (8.4-10.2)
[2017-02-26 06:44] LABS: Chloride 101.3 mmol/L (98-107); Potassium 3.4 mmol/L (3.6-5.0)
--- NOTE | 2017-02-26 08:35 | Progress Note ---
Assessment and Plan Impression * Nonoliguric acute kidney injury secondary to ATN --Renal u/s no hydronephrosis; FeNa 1.8; Urine eos negative * Pleural effusion with possible underlying pneumonia * Achalasia Recommendations * SCr plateaued; continue close monitoring of volume states, lytes * Await pending vasculitis workup as well * Antibiotics per primary team * Avoid nephrotoxins * Strict intake and output * Continue IV hydration * No indication for renal replacement therapy at present Subjective Date of service: 02/26/17 Interval history: Patient without complaint today. Objective - Vital Signs Vital signs: Vital Signs - 12hr 02/25/17 02/25/17 02/26/17 20:59 22:00 00:29 Temperature 96.7 F L 97.8 F Pulse Rate 86 78 Respiratory 18 22 Rate Blood Pressure 121/74 Blood Pressure 116/74 [Right] O2 Sat by Pulse 96 90 97 Oximetry 02/26/17 02/26/17 01:07 03:48 Temperature 98.4 F Pulse Rate 98 H Respiratory 20 17 Rate Blood Pressure Blood Pressure 124/79 [Right] O2 Sat by Pulse 97 Oximetry - General Appearance General appearance: well-developed, well-nourished EENT: ATNC Respiratory: Present: Decreased Breath Sounds Cardiology: regular, S1S2 Gastrointestinal: normal, no tenderness, no distended Neurologic: no focal deficit Musculoskeletal: other (no edema) Psychiatric: cooperative - Lab 02/26/17 05:52 02/26/17 05:52 Most recent lab results Calcium 7.6 mg/dL (8.4-10.2) L 02/26/17 05:52 Phosphorus 3.10 mg/dL (2.5-4.5) 02/23/17 06:44 Magnesium 1.80 mg/dL (1.7-2.3) 02/23/17 06:44 Urine Creatinine 26.4 mg/dL (0.1-20.0) H 02/25/17 23:15 Urine Sodium 18 mEq/L 02/25/17 23:15
--- NOTE | 2017-02-26 09:24 | Event Note ---
Date: 02/26/17 Arrange for outpatient follow-up in Gi clinic after discharge for further management/work-up achalasia. Call back as needed or with questions.
[2017-02-26] MEDS: HABITROL TD SCH (11:24)
[2017-02-26] MEDS: PEPCID PO SCH ×2 (11:24→21:44)
--- NOTE | 2017-02-26 14:19 | Ultrasound Report ---
Renal ultrasound: Acute renal insufficiency. The right kidney has a length of 13.7 cm. The left renal length is 14.2 cm. Both kidneys have increased generalized echogenicity. No evidence of renal mass, hydronephrosis, or calculus. Small amount of fluid noted around both kidneys. The urinary bladder is grossly normal. Impression: Echogenic kidneys consistent with medical renal disease. Nonspecific small volume of perinephric fluid bilaterally.
--- NOTE | 2017-02-26 15:29 | Progress Note ---
Assessment and Plan Assessment and plan: Sepsis due to aspiration pneumonia - Patient is on IV Zosyn and vancomycin; renally dosed Sepsis with hypotension - He was treated with IV antibiotics and fluids, currently the patient's blood pressure is stable Left-sided pleural effusion/parapneumonic effusion - Continue IV antibiotics, patient had thoracentesis by interventional radiology this morning and 50ml of greenish thick fluid was taken out and sent for analysis - No organism seen Disequilibrium - Likely due to hypotension, currently resolved Achalasia - He has consulted and did esophagogram and showed achalasia - And will need manometry and management as outpatient COPD ROXIE - IV antibiotics are renally dosed - IV fluid 125ml/hr - Nephrology consult appreciated DVT prophylaxis - Heparin Full code status Disposition - Continue inpatient care History Interval history: Patient was seen and evaluated at the bedside, Patient worried about his kidney function. Hospitalist Physical - Physical exam Narrative exam: Not in cardiopulmonary distress. The patient appeared well nourished and normally developed. Vital signs as documented. Head exam is unremarkable. No scleral icterus . Neck is without jugular venous distension, thyromegaly, or carotid bruits. Lungs creptations on the posterior LLL zone. Cardiac exam reveals regular rate and Rhythm. First and second heart sounds normal. No murmurs, rubs or gallops. Abdominal exam reveals normal bowel sounds, no masses, no organomegaly and no aortic enlargement. Extremities are nonedematous and both femoral and pedal pulses are normal. [employer]: Alert and oriented 3. No focal weakness. - Constitutional Vitals: Temp Pulse Resp BP Pulse Ox 98.4 F 98 H 17 124/79 97 02/26/17 03:48 02/26/17 03:48 02/26/17 03:48 02/26/17 03:48 02/26/17 03:48 General appearance: Present: mild distress, well-nourished Results - Labs CBC & Chem 7: 02/26/17 05:52 02/26/17 05:52 Labs: Laboratory Last Values WBC 8.8 K/mm3 (4.5-11.0) 02/26/17 05:52 RBC 3.86 M/mm3 (3.65-5.03) 02/26/17 05:52 Hgb 10.8 gm/dl (11.8-15.2) L 02/26/17 05:52 Hct 31.9 % (35.5-45.6) L 02/26/17 05:52 MCV 83 fl (84-94) L 02/26/17 05:52 MCH 28 pg (28-32) 02/26/17 05:52 MCHC 34 % (32-34) 02/26/17 05:52 RDW 15.4 % (13.2-15.2) H 02/26/17 05:52 Plt Count 325 K/mm3 (140-440) 02/26/17 05:52 Lymph % (Auto) 10.9 % (13.4-35.0) L 02/26/17 05:52 [place] % (Auto) 11.3 % (0.0-7.3) H 02/26/17 05:52 Eos % (Auto) 1.0 % (0.0-4.3) 02/26/17 05:52 Baso % (Auto) 0.9 % (0.0-1.8) 02/26/17 05:52 Lymph # 1.0 K/mm3 (1.2-5.4) L 02/26/17 05:52 [place] # 1.0 K/mm3 (0.0-0.8) H 02/26/17 05:52 Eos # 0.1 K/mm3 (0.0-0.4) 02/26/17 05:52 Baso # 0.1 K/mm3 (0.0-0.1) 02/26/17 05:52 Add Manual Diff Complete 02/22/17 05:23 Total Counted 100 02/22/17 05:23 Seg Neutrophils % 75.9 % (40.0-70.0) H 02/26/17 05:52 Seg Neuts % (Manual) 90.0 % (40.0-70.0) H 02/22/17 05:23 Band Neutrophils % 3.0 % 02/22/17 05:23 Lymphocytes % (Manual) 5.0 % (13.4-35.0) L 02/22/17 05:23 Reactive Lymphs % (Man) 0 % 02/22/17 05:23 Monocytes % (Manual) 2.0 % (0.0-7.3) 02/22/17 05:23 Eosinophils % (Manual) 0 % (0.0-4.3) 02/22/17 05:23 Basophils % (Manual) 0 % (0.0-1.8) 02/22/17 05:23 Metamyelocytes % 0 % 02/22/17 05:23 Myelocytes % 0 % 02/22/17 05:23 Promyelocytes % 0 % 02/22/17 05:23 Blast Cells % 0 % 02/22/17 05:23 Nucleated RBC % Not Reportable 02/22/17 05:23 Seg Neutrophils # 6.7 K/mm3 (1.8-7.7) 02/26/17 05:52 Seg Neutrophils # Man 18.2 K/mm3 (1.8-7.7) H 02/22/17 05:23 Band Neutrophils # 0.6 K/mm3 02/22/17 05:23 Lymphocytes # (Manual) 1.0 K/mm3 (1.2-5.4) L 02/22/17 05:23 Abs React Lymphs (Man) 0.0 K/mm3 02/22/17 05:23 Monocytes # (Manual) 0.4 K/mm3 (0.0-0.8) 02/22/17 05:23 Eosinophils # (Manual) 0.0 K/mm3 (0.0-0.4) 02/22/17 05:23 Basophils # (Manual) 0.0 K/mm3 (0.0-0.1) 02/22/17 05:23 Metamyelocytes # 0.0 K/mm3 02/22/17 05:23 Myelocytes # 0.0 K/mm3 02/22/17 05:23 Promyelocytes # 0.0 K/mm3 02/22/17 05:23 Blast Cells # 0.0 K/mm3 02/22/17 05:23 WBC Morphology Not Reportable 02/22/17 05:23 Hypersegmented Neuts Not Reportable 02/22/17 05:23 Hyposegmented Neuts Not Reportable 02/22/17 05:23 Hypogranular Neuts Not Reportable 02/22/17 05:23 Smudge Cells Not Reportable 02/22/17 05:23 Toxic Granulation Not Reportable 02/22/17 05:23 Toxic Vacuolation Not Reportable 02/22/17 05:23 Dohle Bodies Not Reportable 02/22/17 05:23 Pelger-Huet Anomaly Not Reportable 02/22/17 05:23 Skip Rods Not Reportable 02/22/17 05:23 Platelet Estimate Not Reportable 02/22/17 05:23 Clumped Platelets Not Reportable 02/22/17 05:23 Plt Clumps, EDTA Not Reportable 02/22/17 05:23 Large Platelets Not Reportable 02/22/17 05:23 Giant Platelets Not Reportable 02/22/17 05:23 Platelet Satelliting Not Reportable 02/22/17 05:23 Plt Morphology Comment Not Reportable 02/22/17 05:23 RBC Morphology Normal 02/22/17 05:23 Dimorphic RBCs Not Reportable 02/22/17 05:23 Polychromasia Not Reportable 02/22/17 05:23 Hypochromasia Not Reportable 02/22/17 05:23 Poikilocytosis Not Reportable 02/22/17 05:23 Anisocytosis Not Reportable 02/22/17 05:23 Microcytosis Not Reportable 02/22/17 05:23 Macrocytosis Not Reportable 02/22/17 05:23 Spherocytes Not Reportable 02/22/17 05:23 Pappenheimer Bodies Not Reportable 02/22/17 05:23 Sickle Cells Not Reportable 02/22/17 05:23 Target Cells Not Reportable 02/22/17 05:23 Tear Drop Cells Not Reportable 02/22/17 05:23 Ovalocytes Not Reportable 02/22/17 05:23 Helmet Cells Not Reportable 02/22/17 05:23 Raymundo-Bowring Bodies Not Reportable 02/22/17 05:23 [place] Rings Not Reportable 02/22/17 05:23 [place] Cells Not Reportable 02/22/17 05:23 Bite Cells Not Reportable 02/22/17 05:23 Crenated Cell Not Reportable 02/22/17 05:23 Elliptocytes Not Reportable 02/22/17 05:23 Acanthocytes (Spur) Not Reportable 02/22/17 05:23 Rouleaux Not Reportable 02/22/17 05:23 Hemoglobin C Crystals Not Reportable 02/22/17 05:23 Schistocytes Not Reportable 02/22/17 05:23 Malaria parasites Not Reportable 02/22/17 05:23 Armando Bodies Not Reportable 02/22/17 05:23 Hem Pathologist Commnt No 02/22/17 05:23 PT 16.4 Sec. (12.2-14.9) H 02/25/17 06:40 INR 1.26 (0.87-1.13) H 02/25/17 06:40 APTT 33.0 Sec. (24.2-36.6) 02/25/17 06:40 VBG pH 7.399 (7.320-7.420) 02/21/17 11:01 Sodium 139 mmol/L (137-145) 02/26/17 05:52 Potassium 3.4 mmol/L (3.6-5.0) L 02/26/17 05:52 Chloride 101.3 mmol/L (98-107) 02/26/17 05:52 Carbon Dioxide 23 mmol/L (22-30) 02/26/17 05:52 Anion Gap 18 mmol/L 02/26/17 05:52 BUN 21 mg/dL (9-20) H 02/26/17 05:52 Creatinine 4.2 mg/dL (0.8-1.5) H 02/26/17 05:52 Estimated GFR 15 ml/min 02/26/17 05:52 BUN/Creatinine Ratio 5 % 02/26/17 05:52 Glucose 135 mg/dL (75-100) H 02/26/17 05:52 Lactic Acid 2.30 mmol/L (0.7-2.0) H* 02/21/17 13:49 Calcium 7.6 mg/dL (8.4-10.2) L 02/26/17 05:52 Phosphorus 3.10 mg/dL (2.5-4.5) 02/23/17 06:44 Magnesium 1.80 mg/dL (1.7-2.3) 02/23/17 06:44 Total Bilirubin 0.80 mg/dL (0.1-1.2) 02/23/17 06:44 AST 25 units/L (5-40) 02/23/17 06:44 ALT 27 units/L (7-56) 02/23/17 06:44 Alkaline Phosphatase 65 units/L (35-129) 02/23/17 06:44 Total Creatine Kinase 20 units/L (55-170) L 02/26/17 05:52 CK-MB (CK-2) 1.7 ng/mL (0.0-4.0) 02/21/17 22:42 CK-MB (CK-2) Rel Index 2.4 (0-4) 02/21/17 22:42 Troponin T < 0.010 ng/mL (0.00-0.029) 02/21/17 22:42 NT-Pro-B Natriuret Pep 2733 pg/mL (0-900) H 02/21/17 22:42 Total Protein 5.9 g/dL (6.3-8.2) L 02/23/17 06:44 Albumin 1.7 g/dL (3.9-5) L 02/23/17 06:44 Albumin/Globulin Ratio 0.4 % 02/23/17 06:44 Urine Color Straw (Yellow) 02/25/17 23:15 Urine Turbidity Clear (Clear) 02/25/17 23:15 Urine pH 5.0 (5.0-7.0) 02/25/17 23:15 Ur Specific [place] 1.003 (1.003-1.030) 02/25/17 23:15 Urine Protein <15 mg/dl mg/dL (Negative) 02/25/17 23:15 Urine Glucose (UA) Neg mg/dL (Negative) 02/25/17 23:15 Urine Ketones Neg mg/dL (Negative) 02/25/17 23:15 Urine Blood Sm (Negative) 02/25/17 23:15 Urine Nitrite Neg (Negative) 02/25/17 23:15 Urine Bilirubin Neg (Negative) 02/25/17 23:15 Urine Urobilinogen < 2.0 mg/dL (<2.0) 02/25/17 23:15 Ur Leukocyte Esterase Neg (Negative) 02/25/17 23:15 Urine WBC (Auto) < 1.0 /HPF (0.0-6.0) 02/25/17 23:15 Urine RBC (Auto) < 1.0 /HPF (0.0-6.0) 02/25/17 23:15 U Epithel Cells (Auto) < 1.0 /HPF (0-13.0) 02/21/17 11:29 Urine Mucus Few /HPF 02/25/17 23:15 Urine Eosinophils None seen (None Seen) 02/25/17 23:15 Urine Creatinine 26.4 mg/dL (0.1-20.0) H 02/25/17 23:15 Urine Sodium 18 mEq/L 02/25/17 23:15 Fraction Sodium Excret 1.8 02/25/17 23:15 Fluid Type Pleural 02/25/17 Unknown Fluid Color Straw 02/25/17 Unknown Fluid Appearance Turbid 02/25/17 Unknown Fluid WBC 43959 /mm3 02/25/17 Unknown Fluid RBC 1071 /mm3 02/25/17 Unknown Fluid Seg Neutrophils 97.0 % 02/25/17 Unknown Fluid Lymphocytes Not Reportable 02/25/17 Unknown Fluid Reactive Lymphs Water Quality Tester 02/25/17 Unknown Fluid Monocytes 3 % 02/25/17 Unknown Fluid Eosinophils Not Reportable 02/25/17 Unknown Fluid Basophils Not Reportable 02/25/17 Unknown Vancomycin Trough 37.0 ug/mL (5.0-20.0) H 02/24/17 13:57 Urine Opiates Screen Presumptive negative 02/21/17 11:29 Urine Methadone Screen Presumptive negative 02/21/17 11:29 Ur Barbiturates Screen Presumptive negative 02/21/17 11:29 Ur Phencyclidine Scrn Presumptive negative 02/21/17 11:29 Ur Amphetamines Screen Presumptive negative 02/21/17 11:29 U Benzodiazepines Scrn Presumptive negative 02/21/17 11:29 Urine Cocaine Screen Presumptive positive 02/21/17 11:29 U Marijuana (THC) Screen Presumptive positive 02/21/17 11:29 Drugs of Abuse Note Disclamer 02/21/17 11:29 Hepatitis A IgM Ab Non-reactive (NonReactive) 02/25/17 17:48 Hep Bs Antigen Non-reactive (Negative) 02/25/17 17:48 Hep B Core IgM Ab Non-reactive (NonReactive) 02/25/17 17:48 Hepatitis C Antibody Non-reactive (NonReactive) 02/25/17 17:48 HIV 1&2 Antibody Rapid Non react (Non React) 02/25/17 19:09 HIV P24 Antigen Non react (Non React) 02/25/17 19:09 Blood Type A POSITIVE 02/21/17 11:45 Antibody Screen TNR 02/21/17 11:45 ROMINA Antibody Screen Negative 02/21/17 11:45
[2017-02-26] MEDS ORDERED: K-DUR PO ONE (16:00)
--- NOTE | 2017-02-26 17:26 | Progress Note ---
Assessment and Plan Patient alert, awake. No acute respiratory distress.O2 saturation 97% on room air. Patient undergone left thoracentesis.Small amount of fluid obtained and it for examination. Pleural fluid WBC count [id number] . Remaining other results pending.Appears pleural fluid is parapneumonic or empyema.Pleural fluid chemistry and cytology results pending. - Patient Problems (1) Left lower lobe pneumonia Current Visit: Yes Status: Acute Qualifiers: Pneumonia type: P Aspiration pneumonia type: A Plan to address problem: Patient is on zosyn and vancomycin. (2) Pleural effusion, left Current Visit: Yes Status: Acute Plan to address problem: Could be empyema. Scheduled for thoracentesis tomorrow. (3) COPD (chronic obstructive pulmonary disease) Current Visit: Yes Status: Chronic Qualifiers: COPD type: C Chronic bronchitis type: C Emphysema type: unspecified Qualified Code(s): J43.9 - Emphysema, unspecified Plan to address problem: O2 2 litres via nasal canula. Albuterol/Atrovent aerosol treatments.q 6 hours. (4) Achalasia Current Visit: Yes Status: Chronic Plan to address problem: Recommend to consult gastroenterology. (5) Hypotension Current Visit: Yes Status: Acute Qualifiers: Hypotension type: unspecified hypotension type Trimester: T Qualified Code(s): I95.9 - Hypotension, unspecified Plan to address problem: Improved after fluid resucitation. Todays blood pressure is 124/79. (6) Sepsis Current Visit: Yes Status: Acute Qualifiers: Sepsis type: sepsis due to unspecified organism Qualified Code(s): A41.9 - Sepsis, unspecified organism Plan to address problem: Patient is on Zosyn and vancomycin. (7) Cocaine abuse Current Visit: Yes Status: Acute Plan to address problem: Patient denying drug abuse. Patients urine cocaine and urine [place] are positive. Subjective Date of service: 02/26/17 Interval history: Patient alert, awake. No acute respiratory distress.O2 saturation 97% on room air. Patient undergone left thoracentesis.Small amount of fluid obtained and it for examination. Pleural fluid WBC count [id number] . Remaining other results pending.Appears pleural fluid is parapneumonic or empyema.Pleural fluid chemistry and cytology results pending. Objective Constitutional: no acute distress, alert, other (Anxious.) Eyes: non-icteric ENT: oropharynx moist Neck: supple, no lymphadenopathy Ascultation: Left: diminished breath sounds (Dullness to percussion left base.) Cardiovascular: regular rate and rhythm Gastrointestinal: normoactive bowel sounds, soft, non-tender Integumentary: normal Extremities: no cyanosis, no edema Neurologic: normal mental status, non-focal exam, pupils equal and round, CN II- XII normal Psychiatric: anxious CBC and BMP: 02/26/17 05:52 02/26/17 05:52 ABG, PT/INR, D-dimer: PT/INR, D-dimer PT 16.4 Sec. (12.2-14.9) H 02/25/17 06:40 INR 1.26 (0.87-1.13) H 02/25/17 06:40 Abnormal lab findings: Abnormal Labs 02/21/17 02/21/17 02/22/17 13:49 22:42 05:23 WBC 20.2 H Hgb 10.3 L Hct 31.0 L MCV 83 L MCH RDW Lymph % (Auto) [place] % (Auto) Lymph # Cris[place] # Seg Neutrophils % Seg Neuts % (Manual) 90.0 H Lymphocytes % (Manual) 5.0 L Seg Neutrophils # Seg Neutrophils # Man 18.2 H Lymphocytes # (Manual) 1.0 L PT INR Sodium Potassium Carbon Dioxide BUN Creatinine Glucose Lactic Acid 2.30 H* Calcium Magnesium 1.50 L Total Creatine Kinase NT-Pro-B Natriuret Pep 2733 H Total Protein Albumin Urine Creatinine Vancomycin Trough 02/22/17 02/23/17 02/23/17 05:23 06:44 06:44 WBC 14.3 H Hgb 10.1 L Hct 30.5 L MCV 82 L MCH 27 L RDW 15.4 H Lymph % (Auto) [place] % (Auto) Lymph # [place] # Seg Neutrophils % Seg Neuts % (Manual) Lymphocytes % (Manual) Seg Neutrophils # Seg Neutrophils # Man Lymphocytes # (Manual) PT INR Sodium Potassium 3.1 L 3.2 L Carbon Dioxide 21 L BUN 8 L Creatinine 0.7 L Glucose 128 H 135 H Lactic Acid Calcium 7.6 L 7.7 L Magnesium Total Creatine Kinase NT-Pro-B Natriuret Pep Total Protein 6.1 L 5.9 L Albumin 1.9 L 1.7 L Urine Creatinine Vancomycin Trough 02/24/17 02/25/17 02/25/17 13:57 06:40 06:40 WBC Hgb 10.6 L Hct 31.8 L MCV 82 L MCH RDW 15.5 H Lymph % (Auto) 9.1 L Cris[place] % (Auto) 9.9 H Lymph # 0.9 L Crisp # 1.0 H Seg Neutrophils % 79.6 H Seg Neuts % (Manual) Lymphocytes % (Manual) Seg Neutrophils # 8.2 H Seg Neutrophils # Man Lymphocytes # (Manual) PT INR Sodium 136 L Potassium 3.4 L Carbon Dioxide 21 L BUN 21 H Creatinine 3.7 H D Glucose 126 H Lactic Acid Calcium 7.7 L Magnesium Total Creatine Kinase NT-Pro-B Natriuret Pep Total Protein Albumin Urine Creatinine Vancomycin Trough 37.0 H 02/25/17 02/25/17 02/25/17 06:40 17:48 23:15 WBC Hgb Hct MCV MCH RDW Lymph % (Auto) [place] % (Auto) Lymph # [place] # Seg Neutrophils % Seg Neuts % (Manual) Lymphocytes % (Manual) Seg Neutrophils # Seg Neutrophils # Man Lymphocytes # (Manual) PT 16.4 H INR 1.26 H Sodium Potassium Carbon Dioxide BUN 22 H Creatinine 3.9 H Glucose 111 H Lactic Acid Calcium 7.5 L Magnesium Total Creatine Kinase NT-Pro-B Natriuret Pep Total Protein Albumin Urine Creatinine 26.4 H Vancomycin Trough 02/26/17 02/26/17 02/26/17 00:52 05:52 05:52 WBC Hgb 10.8 L Hct 31.9 L MCV 83 L MCH RDW 15.4 H Lymph % (Auto) 10.9 L [place] % (Auto) 11.3 H Lymph # 1.0 L Crisp # 1.0 H Seg Neutrophils % 75.9 H Seg Neuts % (Manual) Lymphocytes % (Manual) Seg Neutrophils # Seg Neutrophils # Man Lymphocytes # (Manual) PT INR Sodium Potassium 3.4 L Carbon Dioxide BUN 21 H Creatinine 4.2 H 4.2 H Glucose 135 H Lactic Acid Calcium 7.6 L Magnesium Total Creatine Kinase 20 L NT-Pro-B Natriuret Pep Total Protein Albumin Urine Creatinine Vancomycin Trough
[2017-02-26] MEDS: RESTORIL PO PRN (21:45)
[2017-02-27] MEDS: ZOSYN/NS 2.25 GM/50ML 2.25 GM/50 ML BAG IV SCH ×4 (01:36→22:16)
[2017-02-27] MEDS: NACL 0.9% 1000 ML 1,000 ML IV SCH (01:37)
--- NOTE | 2017-02-27 07:57 | Progress Note ---
Assessment and Plan Impression * Nonoliguric acute kidney injury secondary to ATN --Renal u/s no hydronephrosis; FeNa 1.8; Urine eos negative * Pleural effusion with possible underlying pneumonia * Achalasia Recommendations * SCr has plateaued. Continue current management * Await pending vasculitis workup * Antibiotics per primary team * Avoid nephrotoxins * Strict intake and output * Continue IV hydration * No indication for renal replacement therapy at present Subjective Date of service: 02/27/17 Interval history: Patient has no complaints today. Objective - Vital Signs Vital signs: Vital Signs - 12hr 02/26/17 02/27/17 02/27/17 22:19 01:11 01:51 Temperature 97.4 F L Pulse Rate 75 Respiratory 17 20 Rate Blood Pressure 139/87 Blood Pressure [Right] O2 Sat by Pulse 97 95 Oximetry 02/27/17 03:52 Temperature 97.8 F Pulse Rate 77 Respiratory 17 Rate Blood Pressure Blood Pressure 140/88 [Right] O2 Sat by Pulse 95 Oximetry - General Appearance General appearance: well-developed, well-nourished EENT: ATNC Respiratory: Present: Clear to Ascultation Cardiology: regular, S1S2 Gastrointestinal: normal, no tenderness, no distended Integumentary: no rash Neurologic: no focal deficit Musculoskeletal: other (no edema) Psychiatric: cooperative - Lab 02/26/17 05:52 02/27/17 06:24 Most recent lab results Calcium 7.6 mg/dL (8.4-10.2) L 02/26/17 05:52 Phosphorus 3.10 mg/dL (2.5-4.5) 02/23/17 06:44 Magnesium 1.80 mg/dL (1.7-2.3) 02/23/17 06:44 Urine Creatinine 26.4 mg/dL (0.1-20.0) H 02/25/17 23:15 Urine Sodium 18 mEq/L 02/25/17 23:15
[2017-02-27 08:37] LABS: Calcium 7.7 mg/dL (8.4-10.2); Chloride 103.8 mmol/L (98-107); Potassium 3.4 mmol/L (3.6-5.0)
--- NOTE | 2017-02-27 12:43 | Progress Note ---
Assessment and Plan Aspiration Pneumonia Left loculated pleural effusion Empyema Achalasia ROXIE Anemia (Await final empyema results; will also discuss with [facility] re: inpatient vs outpatient management as clinically doing very well and wants to go home) - complete AB's per ID recs (Rind around empyema suggests chronic component and surgical management will be definitive) - supplemental oxygen for sats < 90% - continue bronchodilators prn - advised to observe aspiration precautions at home re: Achalasia syndrome - continue and complete other care per attending / other consultants Subjective Date of service: 02/27/17 Principal diagnosis: Aspiration Pneumonia; Left Pleural Effusion; Resolving Sepsis; Achalasia Interval history: Patient is seen today for: Aspiration Pneumonia; Left Pleural Effusion; Resolving Sepsis; Achalasia Seen and examined at bedside; 24hour events reviewed; nursing and respiratory care staff consulted; no adverse overnight events reported to me; feels better; mild BAE; denies acute chest pains or increased SOB; + cough no expectoration; no N/V/F/C; states he has never had manipulation of left chest and no recent dilatation of his esophagus; never had a pleural effusion as far as he knows Objective Vital Signs - 12hr 02/27/17 02/27/17 02/27/17 01:11 01:51 03:49 Temperature 97.4 F L 97.8 F Pulse Rate 75 Respiratory 17 20 17 Rate Blood Pressure 139/87 140/88 Blood Pressure [Right] O2 Sat by Pulse 95 Oximetry 02/27/17 02/27/17 02/27/17 03:52 08:02 08:05 Temperature 97.8 F 97.7 F 97.4 F L Pulse Rate 77 Respiratory 17 18 18 Rate Blood Pressure 124/74 123/80 Blood Pressure 140/88 [Right] O2 Sat by Pulse 95 Oximetry 02/27/17 09:16 Temperature Pulse Rate Respiratory Rate Blood Pressure Blood Pressure [Right] O2 Sat by Pulse 92 Oximetry Constitutional: no acute distress, alert, other (Anxious.) Eyes: non-icteric ENT: oropharynx moist, other (no aphthous ulcers) Neck: supple, no lymphadenopathy, no JVD, other (no goiter) Effort: mildly labored Ascultation: Bilateral: diminished breath sounds ( base.) Cardiovascular: regular rate and rhythm, other (no rubs or murmurs) Gastrointestinal: normoactive bowel sounds, soft, non-tender, non-distended, other (No HSM) Integumentary: normal, other (no rash or cellulitis) Extremities: no cyanosis, no edema, pink and warm, pulses normal, no ischemia or petechiae Neurologic: normal mental status, non-focal exam, pupils equal and round, CN II- XII normal, motor strength normal and Psychiatric: anxious CBC and BMP: 02/28/17 06:01 02/28/17 06:01 ABG, PT/INR, D-dimer: PT/INR, D-dimer PT 16.4 Sec. (12.2-14.9) H 02/25/17 06:40 INR 1.26 (0.87-1.13) H 02/25/17 06:40 Abnormal lab findings: Abnormal Labs 02/21/17 02/21/17 02/22/17 13:49 22:42 05:23 WBC 20.2 H Hgb 10.3 L Hct 31.0 L MCV 83 L MCH RDW Lymph % (Auto) [place] % (Auto) Lymph # [place] # Seg Neutrophils % Seg Neuts % (Manual) 90.0 H Lymphocytes % (Manual) 5.0 L Seg Neutrophils # Seg Neutrophils # Man 18.2 H Lymphocytes # (Manual) 1.0 L PT INR Sodium Potassium Carbon Dioxide BUN Creatinine Glucose Lactic Acid 2.30 H* Calcium Magnesium 1.50 L Total Creatine Kinase NT-Pro-B Natriuret Pep 2733 H Total Protein Albumin Urine Creatinine Vancomycin Trough 02/22/17 02/23/17 02/23/17 05:23 06:44 06:44 WBC 14.3 H Hgb 10.1 L Hct 30.5 L MCV 82 L MCH 27 L RDW 15.4 H Lymph % (Auto) [place] % (Auto) Lymph # [place] # Seg Neutrophils % Seg Neuts % (Manual) Lymphocytes % (Manual) Seg Neutrophils # Seg Neutrophils # Man Lymphocytes # (Manual) PT INR Sodium Potassium 3.1 L 3.2 L Carbon Dioxide 21 L BUN 8 L Creatinine 0.7 L Glucose 128 H 135 H Lactic Acid Calcium 7.6 L 7.7 L Magnesium Total Creatine Kinase NT-Pro-B Natriuret Pep Total Protein 6.1 L 5.9 L Albumin 1.9 L 1.7 L Urine Creatinine Vancomycin Trough 02/24/17 02/25/17 02/25/17 13:57 06:40 06:40 WBC Hgb 10.6 L Hct 31.8 L MCV 82 L MCH RDW 15.5 H Lymph % (Auto) 9.1 L [place] % (Auto) 9.9 H Lymph # 0.9 L [place] # 1.0 H Seg Neutrophils % 79.6 H Seg Neuts % (Manual) Lymphocytes % (Manual) Seg Neutrophils # 8.2 H Seg Neutrophils # Man Lymphocytes # (Manual) PT INR Sodium 136 L Potassium 3.4 L Carbon Dioxide 21 L BUN 21 H Creatinine 3.7 H D Glucose 126 H Lactic Acid Calcium 7.7 L Magnesium Total Creatine Kinase NT-Pro-B Natriuret Pep Total Protein Albumin Urine Creatinine Vancomycin Trough 37.0 H 02/25/17 02/25/17 02/25/17 06:40 17:48 23:15 WBC Hgb Hct MCV MCH RDW Lymph % (Auto) [place] % (Auto) Lymph # [place] # Seg Neutrophils % Seg Neuts % (Manual) Lymphocytes % (Manual) Seg Neutrophils # Seg Neutrophils # Man Lymphocytes # (Manual) PT 16.4 H INR 1.26 H Sodium Potassium Carbon Dioxide BUN 22 H Creatinine 3.9 H Glucose 111 H Lactic Acid Calcium 7.5 L Magnesium Total Creatine Kinase NT-Pro-B Natriuret Pep Total Protein Albumin Urine Creatinine 26.4 H Vancomycin Trough 02/26/17 02/26/17 02/26/17 00:52 05:52 05:52 WBC Hgb 10.8 L Hct 31.9 L MCV 83 L MCH RDW 15.4 H Lymph % (Auto) 10.9 L [place] % (Auto) 11.3 H Lymph # 1.0 L [place] # 1.0 H Seg Neutrophils % 75.9 H Seg Neuts % (Manual) Lymphocytes % (Manual) Seg Neutrophils # Seg Neutrophils # Man Lymphocytes # (Manual) PT INR Sodium Potassium 3.4 L Carbon Dioxide BUN 21 H Creatinine 4.2 H 4.2 H Glucose 135 H Lactic Acid Calcium 7.6 L Magnesium Total Creatine Kinase 20 L NT-Pro-B Natriuret Pep Total Protein Albumin Urine Creatinine Vancomycin Trough 02/27/17 06:24 WBC Hgb Hct MCV MCH RDW Lymph % (Auto) [place] % (Auto) Lymph # [place] # Seg Neutrophils % Seg Neuts % (Manual) Lymphocytes % (Manual) Seg Neutrophils # Seg Neutrophils # Man Lymphocytes # (Manual) PT INR Sodium Potassium 3.4 L Carbon Dioxide BUN Creatinine 4.1 H Glucose Lactic Acid Calcium 7.7 L Magnesium Total Creatine Kinase NT-Pro-B Natriuret Pep Total Protein Albumin Urine Creatinine Vancomycin Trough Chest x-ray: image reviewed (no post thoracentesis pneumothorax) Allied health notes reviewed: nursing
--- NOTE | 2017-02-27 12:52 | Progress Note ---
Assessment and Plan Assessment and plan: Sepsis due to aspiration pneumonia - Patient is on IV Zosyn and vancomycin; renally dosed Sepsis with hypotension - He was treated with IV antibiotics and fluids, currently the patient's blood pressure is stable Left-sided pleural effusion/parapneumonic effusion - Continue IV antibiotics, patient had thoracentesis by interventional radiology this morning and 50ml of greenish thick fluid was taken out and sent for analysis - No organism seen Disequilibrium - Likely due to hypotension, currently resolved Achalasia - He has consulted and did esophagogram and showed achalasia - And will need manometry and management as outpatient COPD ROXIE due to ATN - Cr is 4.1 this morning - IV antibiotics are renally dosed - IV fluid 125ml/hr - [place] fluid inatke - Nephrology consult appreciated DVT prophylaxis - Heparin Full code status Disposition - Continue inpatient care History Interval history: Patient was seen and evaluated at the bedside, Patient asked to be discharged. Hospitalist Physical - Physical exam Narrative exam: Not in cardiopulmonary distress. The patient appeared well nourished and normally developed. Vital signs as documented. Head exam is unremarkable. No scleral icterus . Neck is without jugular venous distension, thyromegaly, or carotid bruits. Lungs creptations on the posterior LLL zone. Cardiac exam reveals regular rate and Rhythm. First and second heart sounds normal. No murmurs, rubs or gallops. Abdominal exam reveals normal bowel sounds, no masses, no organomegaly and no aortic enlargement. Extremities are nonedematous and both femoral and pedal pulses are normal. [employer]: Alert and oriented 3. No focal weakness. - Constitutional Vitals: Temp Pulse Resp BP Pulse Ox 97.4 F L 77 18 123/80 92 02/27/17 08:05 02/27/17 03:52 02/27/17 08:05 02/27/17 08:05 02/27/17 09:16 General appearance: Present: mild distress, well-nourished Results - Labs CBC & Chem 7: 02/26/17 05:52 02/27/17 06:24 Labs: Laboratory Last Values WBC 8.8 K/mm3 (4.5-11.0) 02/26/17 05:52 RBC 3.86 M/mm3 (3.65-5.03) 02/26/17 05:52 Hgb 10.8 gm/dl (11.8-15.2) L 02/26/17 05:52 Hct 31.9 % (35.5-45.6) L 02/26/17 05:52 MCV 83 fl (84-94) L 02/26/17 05:52 MCH 28 pg (28-32) 02/26/17 05:52 MCHC 34 % (32-34) 02/26/17 05:52 RDW 15.4 % (13.2-15.2) H 02/26/17 05:52 Plt Count 325 K/mm3 (140-440) 02/26/17 05:52 Lymph % (Auto) 10.9 % (13.4-35.0) L 02/26/17 05:52 [place] % (Auto) 11.3 % (0.0-7.3) H 02/26/17 05:52 Eos % (Auto) 1.0 % (0.0-4.3) 02/26/17 05:52 Baso % (Auto) 0.9 % (0.0-1.8) 02/26/17 05:52 Lymph # 1.0 K/mm3 (1.2-5.4) L 02/26/17 05:52 [place] # 1.0 K/mm3 (0.0-0.8) H 02/26/17 05:52 Eos # 0.1 K/mm3 (0.0-0.4) 02/26/17 05:52 Baso # 0.1 K/mm3 (0.0-0.1) 02/26/17 05:52 Add Manual Diff Complete 02/22/17 05:23 Total Counted 100 02/22/17 05:23 Seg Neutrophils % 75.9 % (40.0-70.0) H 02/26/17 05:52 Seg Neuts % (Manual) 90.0 % (40.0-70.0) H 02/22/17 05:23 Band Neutrophils % 3.0 % 02/22/17 05:23 Lymphocytes % (Manual) 5.0 % (13.4-35.0) L 02/22/17 05:23 Reactive Lymphs % (Man) 0 % 02/22/17 05:23 Monocytes % (Manual) 2.0 % (0.0-7.3) 02/22/17 05:23 Eosinophils % (Manual) 0 % (0.0-4.3) 02/22/17 05:23 Basophils % (Manual) 0 % (0.0-1.8) 02/22/17 05:23 Metamyelocytes % 0 % 02/22/17 05:23 Myelocytes % 0 % 02/22/17 05:23 Promyelocytes % 0 % 02/22/17 05:23 Blast Cells % 0 % 02/22/17 05:23 Nucleated RBC % Not Reportable 02/22/17 05:23 Seg Neutrophils # 6.7 K/mm3 (1.8-7.7) 02/26/17 05:52 Seg Neutrophils # Man 18.2 K/mm3 (1.8-7.7) H 02/22/17 05:23 Band Neutrophils # 0.6 K/mm3 02/22/17 05:23 Lymphocytes # (Manual) 1.0 K/mm3 (1.2-5.4) L 02/22/17 05:23 Abs React Lymphs (Man) 0.0 K/mm3 02/22/17 05:23 Monocytes # (Manual) 0.4 K/mm3 (0.0-0.8) 02/22/17 05:23 Eosinophils # (Manual) 0.0 K/mm3 (0.0-0.4) 02/22/17 05:23 Basophils # (Manual) 0.0 K/mm3 (0.0-0.1) 02/22/17 05:23 Metamyelocytes # 0.0 K/mm3 02/22/17 05:23 Myelocytes # 0.0 K/mm3 02/22/17 05:23 Promyelocytes # 0.0 K/mm3 02/22/17 05:23 Blast Cells # 0.0 K/mm3 02/22/17 05:23 WBC Morphology Not Reportable 02/22/17 05:23 Hypersegmented Neuts Not Reportable 02/22/17 05:23 Hyposegmented Neuts Not Reportable 02/22/17 05:23 Hypogranular Neuts Not Reportable 02/22/17 05:23 Smudge Cells Not Reportable 02/22/17 05:23 Toxic Granulation Not Reportable 02/22/17 05:23 Toxic Vacuolation Not Reportable 02/22/17 05:23 Dohle Bodies Not Reportable 02/22/17 05:23 Pelger-Huet Anomaly Not Reportable 02/22/17 05:23 Skip Rods Not Reportable 02/22/17 05:23 Platelet Estimate Not Reportable 02/22/17 05:23 Clumped Platelets Not Reportable 02/22/17 05:23 Plt Clumps, EDTA Not Reportable 02/22/17 05:23 Large Platelets Not Reportable 02/22/17 05:23 Giant Platelets Not Reportable 02/22/17 05:23 Platelet Satelliting Not Reportable 02/22/17 05:23 Plt Morphology Comment Not Reportable 02/22/17 05:23 RBC Morphology Normal 02/22/17 05:23 Dimorphic RBCs Not Reportable 02/22/17 05:23 Polychromasia Not Reportable 02/22/17 05:23 Hypochromasia Not Reportable 02/22/17 05:23 Poikilocytosis Not Reportable 02/22/17 05:23 Anisocytosis Not Reportable 02/22/17 05:23 Microcytosis Not Reportable 02/22/17 05:23 Macrocytosis Not Reportable 02/22/17 05:23 Spherocytes Not Reportable 02/22/17 05:23 Pappenheimer Bodies Not Reportable 02/22/17 05:23 Sickle Cells Not Reportable 02/22/17 05:23 Target Cells Not Reportable 02/22/17 05:23 Tear Drop Cells Not Reportable 02/22/17 05:23 Ovalocytes Not Reportable 02/22/17 05:23 Helmet Cells Not Reportable 02/22/17 05:23 [place] Bodies Not Reportable 02/22/17 05:23 [place] Rings Not Reportable 02/22/17 05:23 Jennifer Cells Not Reportable 02/22/17 05:23 Bite Cells Not Reportable 02/22/17 05:23 Crenated Cell Not Reportable 02/22/17 05:23 Elliptocytes Not Reportable 02/22/17 05:23 Acanthocytes (Spur) Not Reportable 02/22/17 05:23 Rouleaux Not Reportable 02/22/17 05:23 Hemoglobin C Crystals Not Reportable 02/22/17 05:23 Schistocytes Not Reportable 02/22/17 05:23 Malaria parasites Not Reportable 02/22/17 05:23 Armando Bodies Not Reportable 02/22/17 05:23 Hem Pathologist Commnt No 02/22/17 05:23 PT 16.4 Sec. (12.2-14.9) H 02/25/17 06:40 INR 1.26 (0.87-1.13) H 02/25/17 06:40 APTT 33.0 Sec. (24.2-36.6) 02/25/17 06:40 VBG pH 7.399 (7.320-7.420) 02/21/17 11:01 Sodium 139 mmol/L (137-145) 02/27/17 06:24 Potassium 3.4 mmol/L (3.6-5.0) L 02/27/17 06:24 Chloride 103.8 mmol/L (98-107) 02/27/17 06:24 Carbon Dioxide 22 mmol/L (22-30) 02/27/17 06:24 Anion Gap 17 mmol/L 02/27/17 06:24 BUN 20 mg/dL (9-20) 02/27/17 06:24 Creatinine 4.1 mg/dL (0.8-1.5) H 02/27/17 06:24 Estimated GFR 15 ml/min 02/27/17 06:24 BUN/Creatinine Ratio 5 % 02/27/17 06:24 Glucose 95 mg/dL (75-100) 02/27/17 06:24 Lactic Acid 2.30 mmol/L (0.7-2.0) H* 02/21/17 13:49 Calcium 7.7 mg/dL (8.4-10.2) L 02/27/17 06:24 Phosphorus 3.10 mg/dL (2.5-4.5) 02/23/17 06:44 Magnesium 1.80 mg/dL (1.7-2.3) 02/23/17 06:44 Total Bilirubin 0.80 mg/dL (0.1-1.2) 02/23/17 06:44 AST 25 units/L (5-40) 02/23/17 06:44 ALT 27 units/L (7-56) 02/23/17 06:44 Alkaline Phosphatase 65 units/L (35-129) 02/23/17 06:44 Total Creatine Kinase 20 units/L (55-170) L 02/26/17 05:52 CK-MB (CK-2) 1.7 ng/mL (0.0-4.0) 02/21/17 22:42 CK-MB (CK-2) Rel Index 2.4 (0-4) 02/21/17 22:42 Troponin T < 0.010 ng/mL (0.00-0.029) 02/21/17 22:42 NT-Pro-B Natriuret Pep 2733 pg/mL (0-900) H 02/21/17 22:42 Total Protein 5.9 g/dL (6.3-8.2) L 02/23/17 06:44 Albumin 1.7 g/dL (3.9-5) L 02/23/17 06:44 Albumin/Globulin Ratio 0.4 % 02/23/17 06:44 Urine Color Straw (Yellow) 02/25/17 23:15 Urine Turbidity Clear (Clear) 02/25/17 23:15 Urine pH 5.0 (5.0-7.0) 02/25/17 23:15 Ur Specific [place] 1.003 (1.003-1.030) 02/25/17 23:15 Urine Protein <15 mg/dl mg/dL (Negative) 02/25/17 23:15 Urine Glucose (UA) Neg mg/dL (Negative) 02/25/17 23:15 Urine Ketones Neg mg/dL (Negative) 02/25/17 23:15 Urine Blood Sm (Negative) 02/25/17 23:15 Urine Nitrite Neg (Negative) 02/25/17 23:15 Urine Bilirubin Neg (Negative) 02/25/17 23:15 Urine Urobilinogen < 2.0 mg/dL (<2.0) 02/25/17 23:15 Ur Leukocyte Esterase Neg (Negative) 02/25/17 23:15 Urine WBC (Auto) < 1.0 /HPF (0.0-6.0) 02/25/17 23:15 Urine RBC (Auto) < 1.0 /HPF (0.0-6.0) 02/25/17 23:15 U Epithel Cells (Auto) < 1.0 /HPF (0-13.0) 02/21/17 11:29 Urine Mucus Few /HPF 02/25/17 23:15 Urine Eosinophils None seen (None Seen) 02/25/17 23:15 Urine Creatinine 26.4 mg/dL (0.1-20.0) H 02/25/17 23:15 Urine Sodium 18 mEq/L 02/25/17 23:15 Fraction Sodium Excret 1.8 02/25/17 23:15 Fluid Type Pleural 02/25/17 Unknown Fluid Color Straw 02/25/17 Unknown Fluid Appearance Turbid 02/25/17 Unknown Fluid WBC 18312 /mm3 02/25/17 Unknown Fluid RBC 1071 /mm3 02/25/17 Unknown Fluid Seg Neutrophils 97.0 % 02/25/17 Unknown Fluid Lymphocytes Not Reportable 02/25/17 Unknown Fluid Reactive Lymphs [place] 02/25/17 Unknown Fluid Monocytes 3 % 02/25/17 Unknown Fluid Eosinophils Not Reportable 02/25/17 Unknown Fluid Basophils Not Reportable 02/25/17 Unknown Vancomycin Trough 37.0 ug/mL (5.0-20.0) H 02/24/17 13:57 Random Vancomycin 38.3 ug/mL (0-40.0) 02/27/17 06:24 Urine Opiates Screen Presumptive negative 02/21/17 11:29 Urine Methadone Screen Presumptive negative 02/21/17 11:29 Ur Barbiturates Screen Presumptive negative 02/21/17 11:29 Ur Phencyclidine Scrn Presumptive negative 02/21/17 11:29 Ur Amphetamines Screen Presumptive negative 02/21/17 11:29 U Benzodiazepines Scrn Presumptive negative 02/21/17 11:29 Urine Cocaine Screen Presumptive positive 02/21/17 11:29 U Marijuana (THC) Screen Presumptive positive 02/21/17 11:29 Drugs of Abuse Note Disclamer 02/21/17 11:29 Hepatitis A IgM Ab Non-reactive (NonReactive) 02/25/17 17:48 Hep Bs Antigen Non-reactive (Negative) 02/25/17 17:48 Hep B Core IgM Ab Non-reactive (NonReactive) 02/25/17 17:48 Hepatitis C Antibody Non-reactive (NonReactive) 02/25/17 17:48 HIV 1&2 Antibody Rapid Non react (Non React) 02/25/17 19:09 HIV P24 Antigen Non react (Non React) 02/25/17 19:09 Blood Type A POSITIVE 02/21/17 11:45 Antibody Screen TNR 02/21/17 11:45 ROMINA Antibody Screen Negative 02/21/17 11:45
[2017-02-27] MEDS: PEPCID PO SCH ×2 (13:12→22:16)
[2017-02-27] MEDS: HABITROL TD SCH (13:13)
[2017-02-28] MEDS: ZOSYN/NS 2.25 GM/50ML 2.25 GM/50 ML BAG IV SCH ×2 (02:30→10:44)
[2017-02-28] MEDS: NACL 0.9% 1000 ML 1,000 ML IV SCH (02:34)
[2017-02-28 02:56] LABS: Myeloperoxidase Antibody <1.0 AI (<1.0)
[2017-02-28 06:27] LABS: Hematocrit 31.7 % (35.5-45.6); Hemoglobin 10.5 gm/dl (11.8-15.2); Mean Corpuscular HGB Conc 33 % (32-34); Mean Corpuscular Hemoglobin 27 pg (28-32); Mean Corpuscular Volume 83 fl (84-94); Platelet Count 334 K/mm3 (140-440); Red Blood Count 3.84 M/mm3 (3.65-5.03); Red Cell Distribution Width 16.4 % (13.2-15.2); White Blood Count 9.9 K/mm3 (4.5-11.0)
[2017-02-28 06:56] LABS: Calcium 7.7 mg/dL (8.4-10.2); Chloride 103.1 mmol/L (98-107); Potassium 3.3 mmol/L (3.6-5.0)
[2017-02-28 07:56] LABS: Basophils % (Manual) 0 % (0.0-1.8); Blastocytes % (Manual) 0 %; Diff Status Complete; Eosinophils % (Manual) 0 % (0.0-4.3); RBC Morphology Normal
[2017-02-28] MEDS: PEPCID PO SCH (10:43)
[2017-02-28] MEDS: HABITROL TD SCH (10:43)
[2017-02-28 11:03] VITALS: BP 127/88
--- NOTE | 2017-02-28 12:39 | Discharge Summary ---
Providers - Providers Date of Admission: 02/21/17 13:05 Attending physician: MELIA BONNER MD 02/21/17 20:50 Consult to Physician [CONS] Routine Consulting Provider: GLORIA PERSON Reason For Exam: Lt Pleural effusion/pneumonia Place consult to:: DR. PERSON Notified:: ANSWERING SERVICE Phone number called:: [phone] Was contact made?: Yes Time called:: 09:01 Comment:: CONSULT COMPLETED - RILEY 02/23/17 11:17 Consult to Physician [CONS] Routine Consulting Provider: CARLINE LOPEZ Reason For Exam: achalsia any reccomdations Place consult to:: DR. LOPEZ Notified:: ANSWERING SERVICES Phone number called:: [phone] Was contact made?: Yes Time called:: 11:49 Comment:: CONSULT COMPLETED - RILEY 02/25/17 16:25 Consult to Physician [CONS] Routine Consulting Provider: FRANKLIN CONRAD Reason For Exam: ROXIE Place consult to:: Nephrology Notified:: office Was contact made?: Yes Time called:: 16:31 02/28/17 09:25 Consult to Physician [CONS] Routine Consulting Provider: RY JIM Reason For Exam: loculated pleural effusion Place consult to:: ID 02/28/17 12:08 Consult to Physician [CONS] Routine Consulting Provider: NYA KENNEY Reason For Exam: left sided loculated pleural effusion Place consult to:: Cardiothoracic surgeon Primary care physician: RATING SPECIALIST Hospitalization Reason for admission: empyema Condition: Stable Time spent for discharge: 31 minutes - Discharge Diagnoses (1) Cocaine abuse Status: Acute (2) Left lower lobe pneumonia Status: Acute Qualifiers: Pneumonia type: P Aspiration pneumonia type: A (3) Pleural effusion, left Status: Acute (4) Sepsis Status: Acute Qualifiers: Sepsis type: sepsis due to unspecified organism Qualified Code(s): A41.9 - Sepsis, unspecified organism (5) Severe pneumonia Status: Acute (6) Syncope and collapse Status: Acute (7) Achalasia Status: Chronic (8) COPD (chronic obstructive pulmonary disease) Status: Chronic Qualifiers: COPD type: C Chronic bronchitis type: C Emphysema type: unspecified Qualified Code(s): J43.9 - Emphysema, unspecified Core Measure Documentation - Palliative Care Palliative Care/ Comfort Measures: Not Applicable - Core Measures Any of the following diagnoses?: none Exam - Physical Exam Narrative exam: Not in cardiopulmonary distress. The patient appeared well nourished and normally developed. Vital signs as documented. Head exam is unremarkable. No scleral icterus . Neck is without jugular venous distension, thyromegaly, or carotid bruits. Lungs creptations on the posterior LLL zone. Cardiac exam reveals regular rate and Rhythm. First and second heart sounds normal. No murmurs, rubs or gallops. Abdominal exam reveals normal bowel sounds, no masses, no organomegaly and no aortic enlargement. Extremities are nonedematous and both femoral and pedal pulses are normal. ALCOHOL AND DRUG COUNSELOR: Alert and oriented 3. No focal weakness. - Constitutional Vitals: Temp Pulse Resp BP Pulse Ox 98.4 F 61 16 127/88 97 02/28/17 11:03 02/28/17 11:03 02/28/17 11:03 02/28/17 11:03 02/28/17 11:03 Plan Activity: no restrictions Weight Bearing Status: Full Weight Bearing Diet: regular Follow up with: PRIMARY MD MELVA [Primary Care Provider] - 3-5 Days PAO MASON MD [Staff Physician] - 14 Days (For manometry ) NYA KENNEY MD [Staff Physician] - 7 Days (For followup of left pleural effusion) Prescriptions: Levofloxacin [Levaquin TAB] 500 mg PO Q48H #7 tablet
--- NOTE | 2017-02-28 13:35 | Progress Note ---
Assessment and Plan Aspiration Pneumonia Left loculated pleural effusion Empyema Achalasia ROXIE Anemia (stressed the importance of outpatient f/up with pulmonary and especially with the surgeon as he may need a VATS / decortication procedure) - complete AB's per ID recs (Rind around empyema suggests chronic component and surgical management will be definitive) - supplemental oxygen for sats < 90% - continue bronchodilators prn - advised to observe aspiration precautions at home re: Achalasia syndrome - continue and complete other care per attending / other consultants - d/c planning OK respiratory-gutiérrez - please give outpatient f/up with Dr. Donaldson in 1-2 weeks post discharge Subjective Date of service: 02/28/17 Principal diagnosis: Aspiration Pneumonia; Left Pleural Effusion; Resolving Sepsis; Achalasia Interval history: Patient is seen today for: Aspiration Pneumonia; Left Pleural Effusion; Resolving Sepsis; Achalasia Seen and examined at bedside; 24hour events reviewed; nursing and respiratory care staff consulted; no adverse overnight events reported to me; spoke with surgeon and he can f/up outpatient if he cannot wait till tomorrow to be seen; denies new chest pqains, palpitations, BAE, hemoptysis; No new issues otherwise Objective Vital Signs - 12hr 02/28/17 02/28/17 02/28/17 02:04 02:05 05:34 Temperature 97.1 F L 98.2 F Pulse Rate 70 69 84 Pulse Rate [ Left Radial] Respiratory 20 18 Rate Blood Pressure 121/68 121/68 Blood Pressure 151/83 [Right] O2 Sat by Pulse 94 93 97 Oximetry 02/28/17 02/28/17 02/28/17 08:17 10:00 11:03 Temperature 98.3 F 98.4 F Pulse Rate 68 61 Pulse Rate [ 68 Left Radial] Respiratory 16 18 16 Rate Blood Pressure Blood Pressure 126/82 127/88 [Right] O2 Sat by Pulse 98 98 97 Oximetry Constitutional: no acute distress, alert, other (Anxious.) Eyes: non-icteric ENT: oropharynx moist, other (no aphthous ulcers) Neck: supple, no lymphadenopathy, no JVD, other (no goiter) Effort: normal Ascultation: Bilateral: diminished breath sounds ( base.) Cardiovascular: regular rate and rhythm, other (no rubs or murmurs) Gastrointestinal: normoactive bowel sounds, soft, non-tender, non-distended, other (No HSM) Integumentary: normal, other (no rash or cellulitis) Extremities: no cyanosis, no edema, pink and warm, pulses normal, no ischemia or petechiae Neurologic: normal mental status, non-focal exam, pupils equal and round, CN II- XII normal, motor strength normal and Psychiatric: anxious, other (overtly hyperactive really) CBC and BMP: 02/28/17 06:01 02/28/17 06:01 ABG, PT/INR, D-dimer: PT/INR, D-dimer PT 16.4 Sec. (12.2-14.9) H 02/25/17 06:40 INR 1.26 (0.87-1.13) H 02/25/17 06:40 Abnormal lab findings: Abnormal Labs 02/21/17 02/21/17 02/22/17 13:49 22:42 05:23 WBC 20.2 H Hgb 10.3 L Hct 31.0 L MCV 83 L MCH RDW Lymph % (Auto) Reagan % (Auto) Lymph # Reagan # Seg Neutrophils % Seg Neuts % (Manual) 90.0 H Lymphocytes % (Manual) 5.0 L Monocytes % (Manual) Seg Neutrophils # Seg Neutrophils # Man 18.2 H Lymphocytes # (Manual) 1.0 L Monocytes # (Manual) PT INR Sodium Potassium Carbon Dioxide BUN Creatinine Glucose Lactic Acid 2.30 H* Calcium Magnesium 1.50 L Total Creatine Kinase NT-Pro-B Natriuret Pep 2733 H Total Protein Albumin Urine Creatinine Vancomycin Trough 02/22/17 02/23/17 02/23/17 05:23 06:44 06:44 WBC 14.3 H Hgb 10.1 L Hct 30.5 L MCV 82 L MCH 27 L RDW 15.4 H Lymph % (Auto) Reagan % (Auto) Lymph # Reagan # Seg Neutrophils % Seg Neuts % (Manual) Lymphocytes % (Manual) Monocytes % (Manual) Seg Neutrophils # Seg Neutrophils # Man Lymphocytes # (Manual) Monocytes # (Manual) PT INR Sodium Potassium 3.1 L 3.2 L Carbon Dioxide 21 L BUN 8 L Creatinine 0.7 L Glucose 128 H 135 H Lactic Acid Calcium 7.6 L 7.7 L Magnesium Total Creatine Kinase NT-Pro-B Natriuret Pep Total Protein 6.1 L 5.9 L Albumin 1.9 L 1.7 L Urine Creatinine Vancomycin Trough 02/24/17 02/25/17 02/25/17 13:57 06:40 06:40 WBC Hgb 10.6 L Hct 31.8 L MCV 82 L MCH RDW 15.5 H Lymph % (Auto) 9.1 L Reagan % (Auto) 9.9 H Lymph # 0.9 L Reagan # 1.0 H Seg Neutrophils % 79.6 H Seg Neuts % (Manual) Lymphocytes % (Manual) Monocytes % (Manual) Seg Neutrophils # 8.2 H Seg Neutrophils # Man Lymphocytes # (Manual) Monocytes # (Manual) PT INR Sodium 136 L Potassium 3.4 L Carbon Dioxide 21 L BUN 21 H Creatinine 3.7 H D Glucose 126 H Lactic Acid Calcium 7.7 L Magnesium Total Creatine Kinase NT-Pro-B Natriuret Pep Total Protein Albumin Urine Creatinine Vancomycin Trough 37.0 H 02/25/17 02/25/17 02/25/17 06:40 17:48 23:15 WBC Hgb Hct MCV MCH RDW Lymph % (Auto) Reagan % (Auto) Lymph # Reagan # Seg Neutrophils % Seg Neuts % (Manual) Lymphocytes % (Manual) Monocytes % (Manual) Seg Neutrophils # Seg Neutrophils # Man Lymphocytes # (Manual) Monocytes # (Manual) PT 16.4 H INR 1.26 H Sodium Potassium Carbon Dioxide BUN 22 H Creatinine 3.9 H Glucose 111 H Lactic Acid Calcium 7.5 L Magnesium Total Creatine Kinase NT-Pro-B Natriuret Pep Total Protein Albumin Urine Creatinine 26.4 H Vancomycin Trough 02/26/17 02/26/17 02/26/17 00:52 05:52 05:52 WBC Hgb 10.8 L Hct 31.9 L MCV 83 L MCH RDW 15.4 H Lymph % (Auto) 10.9 L Reagan % (Auto) 11.3 H Lymph # 1.0 L Reagan # 1.0 H Seg Neutrophils % 75.9 H Seg Neuts % (Manual) Lymphocytes % (Manual) Monocytes % (Manual) Seg Neutrophils # Seg Neutrophils # Man Lymphocytes # (Manual) Monocytes # (Manual) PT INR Sodium Potassium 3.4 L Carbon Dioxide BUN 21 H Creatinine 4.2 H 4.2 H Glucose 135 H Lactic Acid Calcium 7.6 L Magnesium Total Creatine Kinase 20 L NT-Pro-B Natriuret Pep Total Protein Albumin Urine Creatinine Vancomycin Trough 02/27/17 02/28/17 02/28/17 06:24 06:01 06:01 WBC Hgb 10.5 L Hct 31.7 L MCV 83 L MCH 27 L RDW 16.4 H Lymph % (Auto) Reagan % (Auto) Lymph # Reagan # Seg Neutrophils % Seg Neuts % (Manual) 85.0 H Lymphocytes % (Manual) 5.0 L Monocytes % (Manual) 9.0 H Seg Neutrophils # Seg Neutrophils # Man 8.4 H Lymphocytes # (Manual) 0.5 L Monocytes # (Manual) 0.9 H PT INR Sodium Potassium 3.4 L 3.3 L Carbon Dioxide 21 L BUN Creatinine 4.1 H 4.1 H Glucose 101 H Lactic Acid Calcium 7.7 L 7.7 L Magnesium Total Creatine Kinase NT-Pro-B Natriuret Pep Total Protein Albumin Urine Creatinine Vancomycin Trough Chest x-ray: image reviewed Allied health notes reviewed: nursing
[2017-02-28 23:29] LABS: Albumin 1.8 g/dL (3.8-4.8); Gamma Globulin 1.1 g/dL (0.8-1.7)
[2017-03-03 08:49] LABS: LDH,Body Fluid > 12000; Total Protein,Body Fluid < 3.0 (15.0-45.0)
== END 2017-02-28 14:31 | disposition home or self-care (01) | DRG 871 ==
LOC: ED 10:31 → 4A 13:05 → 3A 15:23 → 4A 16:40
PROVIDERS: ADMIT Internal Medicine; ATTEND Internal Medicine
PROC: 3E0234Z Introduction of Serum, Toxoid and Vaccine into Muscle, Percutaneous Approach (ICD-10-PCS; principal; 2017-02-22)
PROC: 0W9B3ZZ Drainage of Left Pleural Cavity, Percutaneous Approach (ICD-10-PCS; 2017-02-25)
DX: A41.9 Sepsis, unspecified organism (principal); J69.0 Pneumonitis due to inhalation of food and vomit; N17.0 Acute kidney failure with tubular necrosis; J90 Pleural effusion, not elsewhere classified; E46 Unspecified protein-calorie malnutrition; Z68.42 Body mass index [BMI] 45.0-49.9, adult; Z23 Encounter for immunization; Z87.891 Personal history of nicotine dependence; K22.0 Achalasia of cardia; J44.9 Chronic obstructive pulmonary disease, unspecified; F14.10 Cocaine abuse, uncomplicated; Z82.49 Family history of ischemic heart disease and other diseases of the circulatory system; R13.10 Dysphagia, unspecified; E87.8 Other disorders of electrolyte and fluid balance, not elsewhere classified
CPT/HCPCS: 32555; 36415; 70450; 71010; 71020; 71260; 74220; 76770; 80048; 80053; 80074; 80202; 80307; 81001; 82140; 82150; 82550; 82553; 82565; 82570; 82805; 82947; 83605; 83735; 83880; 84100; 84160; 84165; 84295; 84300; 84484; 85007; 85025; 85027; 85610; 85730; 86021; 86038; 86160; 86225; 86850; 86900; 86901; 87040; 87086; 87102; 87116; 87806; 88112; 88305; 89050; 89051; 90686; 93005; 93010; 94640; 94760; 96361; 96365; 96367; 99291; J0696; J1644; J1956; J2405; J2543; J3370; J3475; J7030; J7040